=== PATIENT | male | born 1965 | race African-American/Black ===

== ENCOUNTER 2018-07-12 15:29 | Inpatient (IN) | payer MEDICAID, OTHER ==
[2018-07-12 16:55] LABS: ALB/GLOB RATIO 1.3 (1.0-1.8); ALBUMIN 4.1 gm/dL (4.2-5.5); ALKALINE PHOSPHATASE 88 U/L (34-104); ANION GAP 12.2 (7.0-16.0); BUN - UREA NITROGEN 10 mg/dL (7-25); CALCIUM SERUM 9.9 mg/dL (8.6-10.3); CARBON DIOXIDE 24.3 mEq/L (21.0-31.0); CHLORIDE 107 mEq/L (98-107); CREATININE - SERUM 0.9 mg/dL (0.7-1.3); GFR AFRICAN-AMERICAN > 60.0 ml/min (>90); GFR NON AFRICAN-AMERICAN > 60.0 ml/min; GLUCOSE 105 mg/dL (70-105); MAGNESIUM 2.3 mg/dL (1.9-2.7); PHOSPHOROUS 2.4 mg/dL (2.5-5.0); POTASSIUM SERUM 3.5 mEq/L (3.5-5.1); SGOT 24 U/L (13-39); SGPT/ALT 12 U/L (7-52); SODIUM SERUM 140 mEq/L (136-145); TOTAL PROTEIN,SERUM 7.2 gm/dL (6.0-8.3)
[2018-07-12 17:04] LABS: % LYMPHOCYTES 15.4 % (20.0-50.0); HEMATOCRIT 41.9 % (41.0-60); HEMOGLOBIN 13.8 gm/dL (12-16); MEAN CELL VOLUME 87.9 fl (80-99); MEAN CORPUSCULAR HEMOGLOBIN 28.9 pg (26.0-30.0); MEAN CORPUSCULAR HGB CONC 32.9 pg (28.0-36.0); MEAN PLATELET VOLUME 8.8 fl; PLATELET COUNT 245 Th/cmm (150-400); RED BLOOD COUNT 4.77 Mil/cmm (4.30-5.70); RED CELL DISTRIBUTION WIDTH 14.4 % (11.5-20.0); WHITE BLOOD COUNT 10.7 Th/cmm (4.8-10.8)
[2018-07-12 17:05] LABS: % EOSINOPHILS 16.8 % (0.0-5.0); % MONOCYTES 4.8 % (2.0-10.0); EOSINOPHILE ABSOLUTE 1.8 Th/cmm (0.1-0.4); LYMPHOCYTE ABSOLUTE 1.6 Th/cmm (1.5-3.0); MONOCYTE ABSOLUTE 0.5 Th/cmm (0.3-1.0); NEUTROPHILE ABSOLUTE 6.8 Th/cmm (1.8-8.0)
[2018-07-12 17:06] LABS: LYMPHOCYTE 0 % (20-50)
[2018-07-12] MEDS ORDERED: Lactated Ringer 1,000 ML IV ONE (18:41)
--- NOTE | 2018-07-12 21:22 | ED Physician Chart ---
ED Chief Complaint/HPI - Patient Information Date Seen:: 07/12/18 Time Seen:: 15:45 Chief Complaint:: dehydration, failure to thrive, blunted affect History of Present Illness:: dehydration, failure to thrive, blunted affect in a patient with a previous CVA. patient was sitting at [employer] after being abandoned by his friend. People called 911 because he looked odd. Allergies:: Allergies Allergy/AdvReac Type Severity Reaction Status Date / Time No Known Allergies Allergy Verified 07/12/18 15:41 Vitals:: Vital Signs - 8 hr 07/12/18 15:41 Temp 98.6 F HR 94 RR 15 BP 135/85 O2 Sat % 99 Historian:: EMS ED Review of Systems - Review of Systems General/Constitutional: No fever, No chills, No weight loss, No weakness, No diaphoresis, No edema, No loss of appetite Skin: No skin lesions, No rash, No bruising Head: No headache, No light-headedness Eyes: No loss of vision, No pain, No diplopia ENT: No earache, No nasal drainage, No sore throat, No tinnitus Neck: No neck pain, No swelling, No thyromegaly, No stiffness, No mass noted Cardio Vascular: No chest pain, No palpitations, No PND, No orthopnea, No edema Pulmonary: No SOB, No cough, No sputum, No wheezing GI: No nausea, No vomiting, No diarrhea, No pain, No melena, No hematochezia, No constipation, No hematemesis, Other (decreased oral intake; failure to thrive ) G/U: No dysuria, No frequency, No hematuria Musculoskeletal: No bone or joint pain, No back pain, No muscle pain Endocrine: No polyuria, No polydipsia Psychiatric: No prior psych history, No depression, No anxiety, No suicidal ideation Hematopoietic: No bruising, No lymphadenopathy Allergic/Immuno: No urticaria, No angioedema Neurological: No focal symptoms, Weakness, Other (old weakness on the left from prior CVA) ED Past Medical History - Past Medical History Obtainable: No Past Medical History: CVA/TIA Family Medical History - Family Member Mother History Unknown: Yes ED Physical Exam - Physical Examination Other Gen/Cons comments:: patient appears chronically ill appearing and much older than his age. Head: Atraumatic Other Skin comments:: what almost looks like a uremic hill is present on his face and UE. poor skin turgor. Neck: Nontender, Full ROM w/o pain, No JVD, No nuchal rigidity, No bruit, No mass, No stridor Respiratory: Nl effort/Exclusion, Clear to Auscultation, No Wheeze/Rhonchi/Rales Cardio Vascular: RRR, No murmur, gallop, rubs, NL S1 S2 GI: No tenderness/rebounding/guarding, No organomegaly, No hernia, Normal BS's, Nondistended, No mass/bruits, No McBurney tenderness Other Extremities comments:: RUE with hyperkeratotic lesions that take up the entire RUE. LUE contracted and with no movement. can move the LLE from the hip only. Other Neuro/Psych comments:: blunted affect. 99% nonverbal. Misc: Normal back, No paraspinal tenderness ED Labs/Radiology/EKG Results - Lab Results Results: Laboratory Tests 07/12/18 07/12/18 16:26 16:26 WBC 10.7 RBC 4.77 Hgb 13.8 Hct 41.9 MCV 87.9 MCH 28.9 MCHC Differential 32.9 RDW 14.4 Plt Count 245 MPV 8.8 Neutrophils % 63.0 Lymphocytes % 15.4 L Monocytes % 4.8 Eosinophils % 16.8 H Basophils % 0.0 Neutrophils (Manual) Not Reportable Lymphocytes 0 L Sodium 140 Potassium 3.5 Chloride 107 Carbon Dioxide 24.3 Anion Gap 12.2 BUN 10 Creatinine 0.9 Est GFR ( Amer) > 60.0 Est GFR (Non-Af Amer) > 60.0 BUN/Creatinine Ratio 11.1 Glucose 105 Calcium 9.9 Phosphorus 2.4 L Magnesium 2.3 Total Bilirubin 1.0 AST 24 ALT 12 Alkaline Phosphatase 88 Total Protein 7.2 Albumin 4.1 L Globulin 3.1 Albumin/Globulin Ratio 1.3 ED Assessment - Assessment General Assessment: resting comfortably. refuses an IV. refuses a cath for a urine. refuses to eat. spoke to Dr. Guzman about admitting this patient for oral and IV hydration. Assessment/Comments:: multiple phone calls made to police department and to [employer] to try to find the friend who abandoned the patient. All research unsuccessful. ED Septic Shock - . Is Septic Shock (SBP<90, OR Lactate>4 mmol\L) present?: No - <6hrs of presentation: Vital Signs: Vital Signs - 8 hr 07/12/18 15:41 Temp 98.6 F HR 94 RR 15 BP 135/85 O2 Sat % 99 ED Reassessment (Disposition) - Reassessment Reassessment Condition:: Unchanged - Diagnosis Diagnosis:: Dehydration Failure to Thrive Blunted affect. Hemiparesis - Patient Disposition Discharge/Transfer:: Acute Care w/in this hosp Admitted to:: Med/Surg Condition at Disposition:: Stable, Unchanged
[2018-07-12] MEDS: D5-0.45NS 1,000 ML IV SCH (23:21)
[2018-07-13 02:12] VITALS: BP 160/90
--- NOTE | 2018-07-13 10:28 | History & Physical ---
ADMIT DATE: 07/13/2018 CHIEF COMPLAINT: Altered level of consciousness, failure to thrive, dehydration and weakness. HISTORY OF PRESENT ILLNESS: This is a 52-year-old male who was brought into the [facility] from a nearby fast food restaurant, bystander called 911 because the patient appears to be odd. REVIEW OF SYSTEMS: GENERAL: This is a 52-year-old male that appears as stated. No fever. No chills. Positive weakness. HEAD: No headache. No dizziness. EYES: No eye pain. No blurring of vision. NECK: No neck pain. No nuchal rigidity. CHEST: No chest pain. No palpitation. PULMONARY: No coughing. No shortness of breath. GASTROINTESTINAL: No abdominal pain, no constipation, no diarrhea. MUSCULOSKELETAL: No joint pain. No muscle pain. SOCIAL HISTORY: The patient is currently homeless. PAST SURGICAL HISTORY: Unremarkable. FAMILY HISTORY: Unremarkable. PAST MEDICAL HISTORY: Includes history of CVA. PHYSICAL EXAMINATION: VITAL SIGNS: Temperature 98.1, heart rate 71, blood pressure 153/81, respirations of 18, and 96% on room air. HEENT: Head is atraumatic, normocephalic. Eyes: Bilateral conjunctivae are clear. Bilateral pupils are equally round and reactive. NECK: Supple. No JVD. CARDIOVASCULAR: S1 and S2, without murmur. PULMONARY: Clear to auscultation. GASTROINTESTINAL: Soft and nontender without guarding. Positive bowel sounds. MUSCULOSKELETAL: No clubbing. No cyanosis noted. ASSESSMENT: 1. Dehydration. 2. Failure to thrive. 3. History of cerebrovascular accident. PLAN: We will admit the patient to Med/Surg Unit. We will give the patient IV fluids. We will start the patient with losartan 25 mg once a day for blood pressure maintenance and also given clonidine as needed. Treatment plans were discussed with the patient's nurse. Treatment plans were discussed with Dr. Guzman. JOB# [id number]
[2018-07-13] MEDS: D5-0.45NS 1,000 ML IV SCH (13:21)
--- NOTE | 2018-07-13 18:02 | Consultation ---
DATE OF CONSULTATION: 07/13/2018 REASON FOR CONSULTATION: Failure to thrive. HISTORY OF PRESENT ILLNESS: This consult was obtained through the courtesy of Dr. Guzman for this 52-year-old with history of CVA, seems to have been complicated by respiratory failure and required tracheostomy, who is homeless, who presented to the hospital, brought in for being altered or not behaving appropriately. The patient is itching. He has some skin lesions. He was dehydrated. He was very weak. The patient denies any abdominal pain, nausea, vomiting, diarrhea and constipation, overt GI bleed. PAST MEDICAL HISTORY: CVA, skin lesions. PAST SURGICAL HISTORY: Negative. SOCIAL HISTORY: Denies smoking, alcohol, drugs. I am not quite sure how reliable he is. FAMILY HISTORY: Negative or noncontributory. ALLERGIES: Denies any known drug allergies. MEDICATIONS: Not taking any medicines at home, but he is requesting some shots and some cream for skin lesions, so he might have been on some treatment before. REVIEW OF SYSTEMS: He says he has lost weight. Denies any abdominal pain or GI bleed. PHYSICAL EXAMINATION: GENERAL: The patient is awake, oriented to self and place, in mild distress. VITAL SIGNS: Blood pressure is 153/81, heart rate 71, respiratory rate 18, and temperature is 98.1. HEAD AND NECK: Pupils reactive to light and accommodation. Extraocular muscles could not be tested. Oral cavity, no lesion. NECK: Supple. CHEST: Good air entry. LUNGS: Clear to auscultation. CARDIOVASCULAR: Regular rate and rhythm. No murmur or gallop. ABDOMEN: Soft, positive bowel sounds. EXTREMITIES: Lower extremities, no edema. CENTRAL NERVOUS SYSTEM: The patient is weak on the right side, flaccid. LABORATORY DATA: CBC was unremarkable. Chemistry showed phosphorus of 2.4. Normal liver function tests. Albumin is 4.1. IMPRESSION: A 52-year-old with dehydration, weakness, fatigue, not eating as failure to thrive. ASSESSMENT AND PLAN: 1. Failure to thrive. It seems the patient is able to eat, but he does not have enough food, so at this time, we will start him with pureed diet. We will see how he is doing. If he continues to eat, we will give him more food. If he has problem with his appetite, we can give him a Remeron 15 mg at bedtime. We will monitor his labs and see how he is doing. 2. Itching or skin lesion. The patient will need medication for that and this will be per PCP. 3. History of old strokes seems stable at this time. 4. Also, history of previous tracheostomy as obvious by the scar on his neck. At this time, the patient is breathing okay, so no need for further management. Thank you Dr. Guzman for allowing me to participate in the care of this patient. If you have any further questions, please let me know. JOB# [id number]
[2018-07-14] MEDS: D5-0.45NS 1,000 ML IV SCH ×2 (02:21→15:22)
--- NOTE | 2018-07-14 09:34 | General Progress Note ---
Subjective - Review of Systems Events since last encounter: patient admitted with failute to thrive confused and weak Objective - Results Result Diagrams: 07/12/18 16:26 07/12/18 16:26 Recent Labs: Laboratory Last Values WBC 10.7 Th/cmm (4.8-10.8) 07/12/18 16:26 RBC 4.77 Mil/cmm (4.30-5.70) 07/12/18 16:26 Hgb 13.8 gm/dL (12-16) 07/12/18 16:26 Hct 41.9 % (41.0-60) 07/12/18 16:26 MCV 87.9 fl (80-99) 07/12/18 16:26 MCH 28.9 pg (26.0-30.0) 07/12/18 16:26 MCHC Differential 32.9 pg (28.0-36.0) 07/12/18 16:26 RDW 14.4 % (11.5-20.0) 07/12/18 16:26 Plt Count 245 Th/cmm (150-400) 07/12/18 16:26 MPV 8.8 fl 07/12/18 16:26 Neutrophils % 63.0 % (40.0-80.0) 07/12/18 16:26 Lymphocytes % 15.4 % (20.0-50.0) L 07/12/18 16:26 Monocytes % 4.8 % (2.0-10.0) 07/12/18 16:26 Eosinophils % 16.8 % (0.0-5.0) H 07/12/18 16:26 Basophils % 0.0 % (0.0-2.0) 07/12/18 16:26 Neutrophils (Manual) Not Reportable 07/12/18 16:26 Lymphocytes 0 % (20-50) L 07/12/18 16:26 Sodium 140 mEq/L (136-145) 07/12/18 16:26 Potassium 3.5 mEq/L (3.5-5.1) 07/12/18 16:26 Chloride 107 mEq/L (98-107) 07/12/18 16:26 Carbon Dioxide 24.3 mEq/L (21.0-31.0) 07/12/18 16:26 Anion Gap 12.2 (7.0-16.0) 07/12/18 16:26 BUN 10 mg/dL (7-25) 07/12/18 16:26 Creatinine 0.9 mg/dL (0.7-1.3) 07/12/18 16:26 Est GFR ( Amer) > 60.0 ml/min (>90) 07/12/18 16:26 Est GFR (Non-Af Amer) > 60.0 ml/min 07/12/18 16:26 BUN/Creatinine Ratio 11.1 07/12/18 16:26 Glucose 105 mg/dL (70-105) 07/12/18 16:26 Calcium 9.9 mg/dL (8.6-10.3) 07/12/18 16:26 Phosphorus 2.4 mg/dL (2.5-5.0) L 07/12/18 16:26 Magnesium 2.3 mg/dL (1.9-2.7) 07/12/18 16:26 Total Bilirubin 1.0 mg/dL (0.3-1.0) 07/12/18 16:26 AST 24 U/L (13-39) 07/12/18 16:26 ALT 12 U/L (7-52) 07/12/18 16:26 Alkaline Phosphatase 88 U/L (34-104) 07/12/18 16:26 Total Protein 7.2 gm/dL (6.0-8.3) 07/12/18 16:26 Albumin 4.1 gm/dL (4.2-5.5) L 07/12/18 16:26 Globulin 3.1 gm/dL 07/12/18 16:26 Albumin/Globulin Ratio 1.3 (1.0-1.8) 07/12/18 16:26 - Physical Exam Vitals and I&O: Vital Signs Temp 98.1 F 07/13/18 07:56 Pulse 71 07/13/18 07:56 Resp 18 07/13/18 08:00 BP 153/81 07/13/18 07:56 Pulse Ox 96 07/13/18 07:56 Intake & Output 07/13/18 07/14/18 07/14/18 18:59 06:59 18:59 Intake Total 900 120 Balance 900 120 Weight (lbs) 64.41 kg 65.181 kg Intake: Oral 900 120 Other: # Voids 4 # Bowel Movements 1 Stool Characteristics Soft Formed Weight Source Bedscale Bedscale Active Medications: Current Medications Dextrose/Sodium Chloride (D5-0.45ns) 1,000 mls @ 75 mls/hr IV .[id number] FER Stop: 09/10/18 23:53 Losartan Potassium (Cozaar) 25 mg PO DAILY FER Stop: 09/11/18 09:59 Last Admin: 07/14/18 09:15 Dose: Not Given General: No acute distress HEENT: Atraumatic Neck: Supple, JVD Cardiovascular: Regular rate, Normal S1, Normal S2 Lungs: Clear to auscultation Abdomen: Bowel sounds Assessment/Plan - Problem List Patient Problems: All Active Problems Dehydration (Acute) E86.0 Failure to thrive (Acute) [id number] H/O: CVA (cerebrovascular accident) (Acute) Z86.73 - Plan Plan: as per order sheet Nutritional Asmnt/Malnutr-PDOC - Dietary Evaluation Malnutrition Findings (Please click <Entered> for more info): Nutritional Asmnt/Malnutrition Start: 07/13/18 12: 45 Text: Status: Complete Freq: Protocol: Document 07/13/18 12:46 FRANK (Rec: 07/13/18 12:53 FRANK EDISON- [email or web address]) Nutritional Asmnt/Malnutrition Patient General Information Diagnosis F T T, dehydration Pertinent Medical Hx/Surgical Hx CVA/TIA Subjective Information Pt sitting up in bed, shook head "no" when asked if he had an appetite, then shrugged his sholders when asked why did he not have an appetite. Current Diet Order/ Nutrition Support pureed Pertinent Medications D5 1/2NS @75ml/hr (1.8L/day, 306kcals/day) Pertinent Labs 07/12: Na 140, K 3.5, Cl 107, CO2 24.3, BUN 10, Ca 0.9, Ca 9 .9, glucose 105, Phos 2.4, Mg 2.3 Nutritional Hx/Data Height 1.88 m Height (Calculated Centimeters) 188.0 Current Weight (lbs) 63.503 kg Weight (Calculated Kilograms) 63.5 Weight (Calculated Grams) 20539.9 Body Mass Index (BMI) 17.9 Weight Status Underweight GI Symptoms GI Symptoms None Last BM 07/13 Cultural/Ethnic/Yarsani Belief unknown Usual diet at home pureed Skin Integrity/Comment: anayeli score 17, intact Current %PO Negligible < 25% Estimated Nutritional Goals BEE in Kcals: Using Current wt Calories/Kcals/Kg 30+kcals/kg Kcals Calculated 1920+kcals/day Protein: Using Current wt Protein g/k.2+g/kg Protein Calculated 77+g/day Fluid: ml ~1920ml/day (~1ml/kcal) Nutritional Problem 1. Problem Problem Poor PO intake related to Etiology decreased appetite Signs/Symptoms: as evidenced by PO 0%. Intervention/Recommendation Comments Recommend continuing regular diet with texture per MANAGER OF GLOBAL. Consider appeitite stimulant to help with PO intake Recommend Boost Plus BID to help meet estimated needs. Expected Outcomes/Goals Expected Outcomes/Goals PO intake >75% of meals
--- NOTE | 2018-07-14 10:18 | GI Progress Note ---
Subjective - Review of Systems Service Date: 07/14/18 Events since last encounter: No events Subjective: No active complaint Eating good Objective - Results Result Diagrams: 07/12/18 16:26 07/12/18 16:26 Recent Labs: Laboratory Last Values WBC 10.7 Th/cmm (4.8-10.8) 07/12/18 16:26 RBC 4.77 Mil/cmm (4.30-5.70) 07/12/18 16:26 Hgb 13.8 gm/dL (12-16) 07/12/18 16:26 Hct 41.9 % (41.0-60) 07/12/18 16:26 MCV 87.9 fl (80-99) 07/12/18 16:26 MCH 28.9 pg (26.0-30.0) 07/12/18 16:26 MCHC Differential 32.9 pg (28.0-36.0) 07/12/18 16:26 RDW 14.4 % (11.5-20.0) 07/12/18 16:26 Plt Count 245 Th/cmm (150-400) 07/12/18 16:26 MPV 8.8 fl 07/12/18 16:26 Neutrophils % 63.0 % (40.0-80.0) 07/12/18 16:26 Lymphocytes % 15.4 % (20.0-50.0) L 07/12/18 16:26 Monocytes % 4.8 % (2.0-10.0) 07/12/18 16:26 Eosinophils % 16.8 % (0.0-5.0) H 07/12/18 16:26 Basophils % 0.0 % (0.0-2.0) 07/12/18 16:26 Neutrophils (Manual) Not Reportable 07/12/18 16:26 Lymphocytes 0 % (20-50) L 07/12/18 16:26 Sodium 140 mEq/L (136-145) 07/12/18 16:26 Potassium 3.5 mEq/L (3.5-5.1) 07/12/18 16:26 Chloride 107 mEq/L (98-107) 07/12/18 16:26 Carbon Dioxide 24.3 mEq/L (21.0-31.0) 07/12/18 16:26 Anion Gap 12.2 (7.0-16.0) 07/12/18 16:26 BUN 10 mg/dL (7-25) 07/12/18 16:26 Creatinine 0.9 mg/dL (0.7-1.3) 07/12/18 16:26 Est GFR ( Amer) > 60.0 ml/min (>90) 07/12/18 16:26 Est GFR (Non-Af Amer) > 60.0 ml/min 07/12/18 16:26 BUN/Creatinine Ratio 11.1 07/12/18 16:26 Glucose 105 mg/dL (70-105) 07/12/18 16:26 Calcium 9.9 mg/dL (8.6-10.3) 07/12/18 16:26 Phosphorus 2.4 mg/dL (2.5-5.0) L 07/12/18 16:26 Magnesium 2.3 mg/dL (1.9-2.7) 07/12/18 16:26 Total Bilirubin 1.0 mg/dL (0.3-1.0) 07/12/18 16:26 AST 24 U/L (13-39) 07/12/18 16:26 ALT 12 U/L (7-52) 07/12/18 16:26 Alkaline Phosphatase 88 U/L (34-104) 07/12/18 16:26 Total Protein 7.2 gm/dL (6.0-8.3) 07/12/18 16:26 Albumin 4.1 gm/dL (4.2-5.5) L 07/12/18 16:26 Globulin 3.1 gm/dL 07/12/18 16:26 Albumin/Globulin Ratio 1.3 (1.0-1.8) 07/12/18 16:26 - Physical Exam Vitals and I&O: Vital Signs Temp 98.1 F 07/13/18 07:56 Pulse 71 07/13/18 07:56 Resp 18 07/13/18 08:00 BP 153/81 07/13/18 07:56 Pulse Ox 96 07/13/18 07:56 Intake & Output 07/13/18 07/14/18 07/14/18 18:59 06:59 18:59 Intake Total 900 120 Balance 900 120 Weight (lbs) 64.41 kg 65.181 kg Intake: Oral 900 120 Other: # Voids 4 # Bowel Movements 1 Stool Characteristics Soft Formed Weight Source Bedscale Bedscale Active Medications: Current Medications Dextrose/Sodium Chloride (D5-0.45ns) 1,000 mls @ 75 mls/hr IV .[id number] [facility] Stop: 09/10/18 23:53 Losartan Potassium (Cozaar) 25 mg PO DAILY [facility] Stop: 09/11/18 09:59 Last Admin: 07/14/18 09:15 Dose: Not Given General: Alert, No acute distress Cardiovascular: Regular rate, Normal S1, Normal S2 Lungs: Clear to auscultation Abdomen: Bowel sounds, Soft Assessment/Plan - Problem List Patient Problems: All Active Problems Dehydration (Acute) E86.0 Failure to thrive (Acute) [id number] H/O: CVA (cerebrovascular accident) (Acute) Z86.73 - Plan Plan: 1. Dehydration. Better. Continue IVF and feeding 2. Failure to thrive. Most likely due to lack of food Cont feeding
[2018-07-15] MEDS: D5-0.45NS 1,000 ML IV SCH (05:22)
--- NOTE | 2018-07-15 10:26 | General Progress Note ---
Subjective - Review of Systems Events since last encounter: patient awake alert doing well Objective - Results Result Diagrams: 07/12/18 16:26 07/12/18 16:26 Recent Labs: Laboratory Last Values WBC 10.7 Th/cmm (4.8-10.8) 07/12/18 16:26 RBC 4.77 Mil/cmm (4.30-5.70) 07/12/18 16:26 Hgb 13.8 gm/dL (12-16) 07/12/18 16:26 Hct 41.9 % (41.0-60) 07/12/18 16:26 MCV 87.9 fl (80-99) 07/12/18 16:26 MCH 28.9 pg (26.0-30.0) 07/12/18 16:26 MCHC Differential 32.9 pg (28.0-36.0) 07/12/18 16:26 RDW 14.4 % (11.5-20.0) 07/12/18 16:26 Plt Count 245 Th/cmm (150-400) 07/12/18 16:26 MPV 8.8 fl 07/12/18 16:26 Neutrophils % 63.0 % (40.0-80.0) 07/12/18 16:26 Lymphocytes % 15.4 % (20.0-50.0) L 07/12/18 16:26 Monocytes % 4.8 % (2.0-10.0) 07/12/18 16:26 Eosinophils % 16.8 % (0.0-5.0) H 07/12/18 16:26 Basophils % 0.0 % (0.0-2.0) 07/12/18 16:26 Neutrophils (Manual) Not Reportable 07/12/18 16:26 Lymphocytes 0 % (20-50) L 07/12/18 16:26 Sodium 140 mEq/L (136-145) 07/12/18 16:26 Potassium 3.5 mEq/L (3.5-5.1) 07/12/18 16:26 Chloride 107 mEq/L (98-107) 07/12/18 16:26 Carbon Dioxide 24.3 mEq/L (21.0-31.0) 07/12/18 16:26 Anion Gap 12.2 (7.0-16.0) 07/12/18 16:26 BUN 10 mg/dL (7-25) 07/12/18 16:26 Creatinine 0.9 mg/dL (0.7-1.3) 07/12/18 16:26 Est GFR ( Amer) > 60.0 ml/min (>90) 07/12/18 16:26 Est GFR (Non-Af Amer) > 60.0 ml/min 07/12/18 16:26 BUN/Creatinine Ratio 11.1 07/12/18 16:26 Glucose 105 mg/dL (70-105) 07/12/18 16:26 Calcium 9.9 mg/dL (8.6-10.3) 07/12/18 16:26 Phosphorus 2.4 mg/dL (2.5-5.0) L 07/12/18 16:26 Magnesium 2.3 mg/dL (1.9-2.7) 07/12/18 16:26 Total Bilirubin 1.0 mg/dL (0.3-1.0) 07/12/18 16:26 AST 24 U/L (13-39) 07/12/18 16:26 ALT 12 U/L (7-52) 07/12/18 16:26 Alkaline Phosphatase 88 U/L (34-104) 07/12/18 16:26 Total Protein 7.2 gm/dL (6.0-8.3) 07/12/18 16:26 Albumin 4.1 gm/dL (4.2-5.5) L 07/12/18 16:26 Globulin 3.1 gm/dL 07/12/18 16:26 Albumin/Globulin Ratio 1.3 (1.0-1.8) 07/12/18 16:26 - Physical Exam Vitals and I&O: Vital Signs Temp 98.1 F 07/13/18 07:56 Pulse 71 07/13/18 07:56 Resp 16 07/14/18 20:00 BP 153/81 07/13/18 07:56 Pulse Ox 96 07/13/18 07:56 Intake & Output 07/14/18 07/15/18 07/15/18 18:59 06:59 18:59 Intake Total 750 1440 Output Total 1 Balance 750 1439 Weight (lbs) 64.864 kg 64.864 kg Intake: Oral 750 1440 Output: Stool 1 Other: # Voids 4 4 # Bowel Movements 1 Stool Characteristics Soft Formed Weight Source Bedscale Bedscale Active Medications: Current Medications Hydrocortisone (Hydrocortisone 1%) 1 appl TP BID FER Stop: 09/12/18 19:29 Last Admin: 07/15/18 09:12 Dose: 1 appl Dextrose/Sodium Chloride (D5-0.45ns) 1,000 mls @ 75 mls/hr IV .[id number] [facility]ER Stop: 09/10/18 23:53 Last Admin: 07/15/18 05:22 Dose: Not Given Losartan Potassium (Cozaar) 25 mg PO DAILY [facility]ER Stop: 09/11/18 09:59 Last Admin: 07/15/18 09:15 Dose: Not Given General: Alert, No acute distress HEENT: Atraumatic Neck: Supple, JVD Cardiovascular: Regular rate, Normal S1, Normal S2 Lungs: Clear to auscultation Abdomen: Bowel sounds, Soft Assessment/Plan - Problem List Patient Problems: All Active Problems Dehydration (Acute) E86.0 Failure to thrive (Acute) [id number] H/O: CVA (cerebrovascular accident) (Acute) Z86.73 - Plan Plan: as per order sheet Nutritional Asmnt/Malnutr-PDOC - Dietary Evaluation Malnutrition Findings (Please click <Entered> for more info): Nutritional Asmnt/Malnutrition Start: 07/13/18 12: 45 Text: Status: Complete Freq: Protocol: Document 07/13/18 12:46 FRANK (Rec: 07/13/18 12:53 FRANK HOGAN- [email or web address]) Nutritional Asmnt/Malnutrition Patient General Information Diagnosis F T T, dehydration Pertinent Medical Hx/Surgical Hx CVA/TIA Subjective Information Pt sitting up in bed, shook head "no" when asked if he had an appetite, then shrugged his sholders when asked why did he not have an appetite. Current Diet Order/ Nutrition Support pureed Pertinent Medications D5 1/2NS @75ml/hr (1.8L/day, 306kcals/day) Pertinent Labs 07/12: Na 140, K 3.5, Cl 107, CO2 24.3, BUN 10, Ca 0.9, Ca 9 .9, glucose 105, Phos 2.4, Mg 2.3 Nutritional Hx/Data Height 1.88 m Height (Calculated Centimeters) 188.0 Current Weight (lbs) 63.503 kg Weight (Calculated Kilograms) 63.5 Weight (Calculated Grams) 05254.9 Body Mass Index (BMI) 17.9 Weight Status Underweight GI Symptoms GI Symptoms None Last BM 07/13 Cultural/Ethnic/Restorationism Belief unknown Usual diet at home pureed Skin Integrity/Comment: anayeli score 17, intact Current %PO Negligible < 25% Estimated Nutritional Goals BEE in Kcals: Using Current wt Calories/Kcals/Kg 30+kcals/kg Kcals Calculated 1920+kcals/day Protein: Using Current wt Protein g/k.2+g/kg Protein Calculated 77+g/day Fluid: ml ~1920ml/day (~1ml/kcal) Nutritional Problem 1. Problem Problem Poor PO intake related to Etiology decreased appetite Signs/Symptoms: as evidenced by PO 0%. Intervention/Recommendation Comments Recommend continuing regular diet with texture per SEWING DEPARTMENT SUPERVISOR. Consider appeitite stimulant to help with PO intake Recommend Boost Plus BID to help meet estimated needs. Expected Outcomes/Goals Expected Outcomes/Goals PO intake >75% of meals
--- NOTE | 2018-07-15 18:31 | Consultation ---
DATE OF CONSULTATION: 07/15/2018 HISTORY OF PRESENT ILLNESS: A 52-year-old male found at [facility], apparently abandoned by a friend. People called 911 because he looked odd, blunted affect, not saying anything to me on initial exam. Staff noting he has a previous CVA, told people at [facility], he had a stroke, so there was some urgency to get into the hospital. The patient is flat on exam. Not answering any questions whatsoever. Not answering questions and we will provide for basic food, clothing, and detention. The patient resistant to care. Per staff, no behaviors, no agitation, has been eating on his own volition, going to the bathroom. PAST PSYCHIATRIC HISTORY: Unclear. PAST MEDICAL HISTORY: Failure to thrive, history of stroke. FAMILY HISTORY: Noncontributory. SOCIAL HISTORY: Apparently homeless, unclear social support, unclear drugs. MENTAL STATUS EXAMINATION: -[place] male, awake, alert, not answering any questions, staring blankly, mood unclear. Affect flat. Thought processes were difficult to assess. Thought content, difficult to assess. Insight and judgment seemingly diminished. PROVISIONAL DIAGNOSES: Mood, unspecified; anxiety, unspecified; and psychosis, unspecified. MEDICAL: Please see full H and P. RECOMMENDATIONS AND PLAN: The patient will likely need a [id number] hold for grave disability given his current condition. We will continue to monitor. JOB# [id number]
--- NOTE | 2018-07-15 22:07 | GI Progress Note ---
Subjective - Review of Systems Service Date: 07/15/18 Events since last encounter: Pt refusig most meds and treatment plan but eating well Objective - Results Result Diagrams: 07/12/18 16:26 07/12/18 16:26 Recent Labs: Laboratory Last Values WBC 10.7 Th/cmm (4.8-10.8) 07/12/18 16:26 RBC 4.77 Mil/cmm (4.30-5.70) 07/12/18 16:26 Hgb 13.8 gm/dL (12-16) 07/12/18 16:26 Hct 41.9 % (41.0-60) 07/12/18 16:26 MCV 87.9 fl (80-99) 07/12/18 16:26 MCH 28.9 pg (26.0-30.0) 07/12/18 16:26 MCHC Differential 32.9 pg (28.0-36.0) 07/12/18 16:26 RDW 14.4 % (11.5-20.0) 07/12/18 16:26 Plt Count 245 Th/cmm (150-400) 07/12/18 16:26 MPV 8.8 fl 07/12/18 16:26 Neutrophils % 63.0 % (40.0-80.0) 07/12/18 16:26 Lymphocytes % 15.4 % (20.0-50.0) L 07/12/18 16:26 Monocytes % 4.8 % (2.0-10.0) 07/12/18 16:26 Eosinophils % 16.8 % (0.0-5.0) H 07/12/18 16:26 Basophils % 0.0 % (0.0-2.0) 07/12/18 16:26 Neutrophils (Manual) Not Reportable 07/12/18 16:26 Lymphocytes 0 % (20-50) L 07/12/18 16:26 Sodium 140 mEq/L (136-145) 07/12/18 16:26 Potassium 3.5 mEq/L (3.5-5.1) 07/12/18 16:26 Chloride 107 mEq/L (98-107) 07/12/18 16:26 Carbon Dioxide 24.3 mEq/L (21.0-31.0) 07/12/18 16:26 Anion Gap 12.2 (7.0-16.0) 07/12/18 16:26 BUN 10 mg/dL (7-25) 07/12/18 16:26 Creatinine 0.9 mg/dL (0.7-1.3) 07/12/18 16:26 Est GFR ( Amer) > 60.0 ml/min (>90) 07/12/18 16:26 Est GFR (Non-Af Amer) > 60.0 ml/min 07/12/18 16:26 BUN/Creatinine Ratio 11.1 07/12/18 16:26 Glucose 105 mg/dL (70-105) 07/12/18 16:26 Calcium 9.9 mg/dL (8.6-10.3) 07/12/18 16:26 Phosphorus 2.4 mg/dL (2.5-5.0) L 07/12/18 16:26 Magnesium 2.3 mg/dL (1.9-2.7) 07/12/18 16:26 Total Bilirubin 1.0 mg/dL (0.3-1.0) 07/12/18 16:26 AST 24 U/L (13-39) 07/12/18 16:26 ALT 12 U/L (7-52) 07/12/18 16:26 Alkaline Phosphatase 88 U/L (34-104) 07/12/18 16:26 Total Protein 7.2 gm/dL (6.0-8.3) 07/12/18 16:26 Albumin 4.1 gm/dL (4.2-5.5) L 07/12/18 16:26 Globulin 3.1 gm/dL 07/12/18 16:26 Albumin/Globulin Ratio 1.3 (1.0-1.8) 07/12/18 16:26 - Physical Exam Vitals and I&O: Vital Signs Temp 98.1 F 07/13/18 07:56 Pulse 71 07/13/18 07:56 Resp 18 07/15/18 20:00 BP 153/81 07/13/18 07:56 Pulse Ox 96 07/13/18 07:56 Intake & Output 07/15/18 07/15/18 07/16/18 06:59 18:59 06:59 Intake Total 1440 950 Output Total 1 Balance 1439 950 Weight (lbs) 64.864 kg 64.864 kg Intake: Oral 1440 950 Output: Stool 1 Other: # Voids 4 3 # Bowel Movements 1 1 Stool Characteristics Soft Soft Soft Formed Formed Formed Weight Source Bedscale Bedscale Active Medications: Current Medications Hydrocortisone (Hydrocortisone 1%) 1 appl TP BID [facility] Stop: 09/12/18 19:29 Last Admin: 07/15/18 16:40 Dose: Not Given Dextrose/Sodium Chloride (D5-0.45ns) 1,000 mls @ 75 mls/hr IV .[id number] [facility] Stop: 09/10/18 23:53 Last Admin: 07/15/18 05:22 Dose: Not Given Losartan Potassium (Cozaar) 25 mg PO DAILY [facility] Stop: 09/11/18 09:59 Last Admin: 07/15/18 09:15 Dose: Not Given General: Alert, No acute distress HEENT: Atraumatic Neck: Supple, JVD Cardiovascular: Regular rate, Normal S1, Normal S2 Lungs: Clear to auscultation Abdomen: Bowel sounds, Soft Assessment/Plan - Problem List Patient Problems: All Active Problems Dehydration (Acute) E86.0 Failure to thrive (Acute) [id number] H/O: CVA (cerebrovascular accident) (Acute) Z86.73 - Assessment Assessment: Plan: 1. Dehydration. Better. Continue IVF and feeding 2. Failure to thrive. Most likely due to lack of food Cont feeding
--- NOTE | 2018-07-16 16:17 | Consultation ---
DATE OF CONSULTATION: 07/16/2018 HISTORY OF PRESENT ILLNESS: A 52-year-old male apparently left [facility] to wait in line by people at the [facility] and [facility], who are on their way to [facility] for an evaluation. The patient was declining, decompensating, mute, and was not talking anymore and was acting strange. Patrons at the [facility] called the police because of the patient's odd behaviors and demeanor. On [id number], the patient is not talking to me, whatsoever, but did give the social services manager an answer. Apparently, he is staying at a room and board. They did verbalize that they are concerned about him and would like him evaluated because he is not taking medications. PAST PSYCHIATRIC HISTORY: Schizophrenia. SOCIAL HISTORY: The patient coming from a [facility] and [facility]. MENTAL STATUS EXAMINATION: -[place]yrgy[place] male, awake, alert, staring blankly. Speech not answering any questions. Mood unclear. Affect flat. Thought processes were difficult to assess. Thought content, difficult to assess. PROVISIONAL DIAGNOSIS: Schizophrenia. RECOMMENDATIONS AND PLAN: Ongoing 5150 hold. We are attempting to transfer him to an inpatient psych unit. JOB# [id number]
--- NOTE | 2018-07-17 14:32 | GI Progress Note ---
Subjective - Review of Systems Subjective: NO EVENTS EATING FOOD PER STAFF NO COMPLAINTS OF ABD PAIN Objective - Results Result Diagrams: 07/12/18 16:26 07/12/18 16:26 Recent Labs: Laboratory Last Values WBC 10.7 Th/cmm (4.8-10.8) 07/12/18 16:26 RBC 4.77 Mil/cmm (4.30-5.70) 07/12/18 16:26 Hgb 13.8 gm/dL (12-16) 07/12/18 16:26 Hct 41.9 % (41.0-60) 07/12/18 16:26 MCV 87.9 fl (80-99) 07/12/18 16:26 MCH 28.9 pg (26.0-30.0) 07/12/18 16: MCHC Differential 32.9 pg (28.0-36.0) 07/12/18 16:26 RDW 14.4 % (11.5-20.0) 07/12/18 16:26 Plt Count 245 Th/cmm (150-400) 07/12/18 16:26 MPV 8.8 fl 07/12/18 16:26 Neutrophils % 63.0 % (40.0-80.0) 07/12/18 16:26 Lymphocytes % 15.4 % (20.0-50.0) L 07/12/18 16:26 Monocytes % 4.8 % (2.0-10.0) 07/12/18 16:26 Eosinophils % 16.8 % (0.0-5.0) H 07/12/18 16: Basophils % 0.0 % (0.0-2.0) 07/12/18 16:26 Neutrophils (Manual) Not Reportable 07/12/18 16:26 Lymphocytes 0 % (20-50) L 07/12/18 16:26 Sodium 140 mEq/L (136-145) 07/12/18 16:26 Potassium 3.5 mEq/L (3.5-5.1) 07/12/18 16:26 Chloride 107 mEq/L (98-107) 07/12/18 16:26 Carbon Dioxide 24.3 mEq/L (21.0-31.0) 07/12/18 16:26 Anion Gap 12.2 (7.0-16.0) 07/12/18 16:26 BUN 10 mg/dL (7-25) 07/12/18 16:26 Creatinine 0.9 mg/dL (0.7-1.3) 07/12/18 16:26 Est GFR ( Amer) > 60.0 ml/min (>90) 07/12/18 16:26 Est GFR (Non-Af Amer) > 60.0 ml/min 07/12/18 16:26 BUN/Creatinine Ratio 11.1 07/12/18 16:26 Glucose 105 mg/dL (70-105) 07/12/18 16:26 Calcium 9.9 mg/dL (8.6-10.3) 07/12/18 16:26 Phosphorus 2.4 mg/dL (2.5-5.0) L 07/12/18 16:26 Magnesium 2.3 mg/dL (1.9-2.7) 07/12/18 16:26 Total Bilirubin 1.0 mg/dL (0.3-1.0) 07/12/18 16:26 AST 24 U/L (13-39) 07/12/18 16:26 ALT 12 U/L (7-52) 07/12/18 16:26 Alkaline Phosphatase 88 U/L (34-104) 07/12/18 16:26 Total Protein 7.2 gm/dL (6.0-8.3) 07/12/18 16:26 Albumin 4.1 gm/dL (4.2-5.5) L 07/12/18 16:26 Globulin 3.1 gm/dL 07/12/18 16:26 Albumin/Globulin Ratio 1.3 (1.0-1.8) 07/12/18 16:26 - Physical Exam Vitals and I&O: Vital Signs Temp 98.8 F 07/17/18 12:00 Pulse 75 07/17/18 12:00 Resp 20 07/17/18 12:00 BP 142/85 07/17/18 12:00 Pulse Ox 100 07/17/18 12:00 Intake & Output 07/16/18 07/17/18 07/17/18 18:59 06:59 18:59 Intake Total 560 500 Balance 560 500 Weight (lbs) 64.864 kg 64.864 kg Intake: Oral 560 500 Other: # Voids 3 3 # Bowel Movements 0 0 Stool Characteristics Soft Soft Soft Formed Formed Formed Weight Source Bedscale Bedscale Active Medications: Current Medications Hydrocortisone (Hydrocortisone 1%) 1 appl TP BID [facility] Stop: 09/12/18 19:29 Last Admin: 07/17/18 08:29 Dose: Not Given Dextrose/Sodium Chloride (D5-0.45ns) 1,000 mls @ 75 mls/hr IV .[id number] [facility]ER Stop: 09/10/18 23:53 Last Admin: 07/15/18 05:22 Dose: Not Given Losartan Potassium (Cozaar) 25 mg PO DAILY [facility]ER Stop: 09/11/18 09:59 Last Admin: 07/17/18 08:30 Dose: Not Given Risperidone (Risperdal) 0.5 mg PO BID [facility]; Protocol Stop: 09/14/18 16:59 General: Alert, No acute distress HEENT: Atraumatic Neck: Supple, JVD Cardiovascular: Regular rate, Normal S1, Normal S2 Lungs: Clear to auscultation Abdomen: Bowel sounds, Soft Assessment/Plan - Problem List Patient Problems: All Active Problems Dehydration (Acute) E86.0 Failure to thrive (Acute) [id number] H/O: CVA (cerebrovascular accident) (Acute) Z86.73 - Assessment Assessment: 62 YO MALE WITH PSYCH ISSUES ON 5150 HOLD HAD FAILURE TO THRIVE BUT NOW EATING ORALLY NO GI ISSUES AT THIS TIME 1.CONT WITH SUPP CARE 2.PSYCH INPUT 3.NO NEED FOR PEG AT THIS TIME SINCE PT IS EATING 4.WILL SEE NEEDED; CALL IF QUESTIONS
--- NOTE | 2018-07-17 15:38 | General Progress Note ---
Subjective - Review of Systems Events since last encounter: denies abd pain in no distress eating well Objective - Results Result Diagrams: 07/12/18 16:26 07/12/18 16:26 Recent Labs: Laboratory Last Values WBC 10.7 Th/cmm (4.8-10.8) 07/12/18 16:26 RBC 4.77 Mil/cmm (4.30-5.70) 07/12/18 16:26 Hgb 13.8 gm/dL (12-16) 07/12/18 16:26 Hct 41.9 % (41.0-60) 07/12/18 16:26 MCV 87.9 fl (80-99) 07/12/18 16:26 MCH 28.9 pg (26.0-30.0) 07/12/18 16: MCHC Differential 32.9 pg (28.0-36.0) 07/12/18 16:26 RDW 14.4 % (11.5-20.0) 07/12/18 16:26 Plt Count 245 Th/cmm (150-400) 07/12/18 16:26 MPV 8.8 fl 07/12/18 16:26 Neutrophils % 63.0 % (40.0-80.0) 07/12/18 16:26 Lymphocytes % 15.4 % (20.0-50.0) L 07/12/18 16:26 Monocytes % 4.8 % (2.0-10.0) 07/12/18 16:26 Eosinophils % 16.8 % (0.0-5.0) H 07/12/18 16:26 Basophils % 0.0 % (0.0-2.0) 07/12/18 16:26 Neutrophils (Manual) Not Reportable 07/12/18 16:26 Lymphocytes 0 % (20-50) L 07/12/18 16:26 Sodium 140 mEq/L (136-145) 07/12/18 16:26 Potassium 3.5 mEq/L (3.5-5.1) 07/12/18 16:26 Chloride 107 mEq/L (98-107) 07/12/18 16:26 Carbon Dioxide 24.3 mEq/L (21.0-31.0) 07/12/18 16:26 Anion Gap 12.2 (7.0-16.0) 07/12/18 16:26 BUN 10 mg/dL (7-25) 07/12/18 16:26 Creatinine 0.9 mg/dL (0.7-1.3) 07/12/18 16:26 Est GFR ( Amer) > 60.0 ml/min (>90) 07/12/18 16:26 Est GFR (Non-Af Amer) > 60.0 ml/min 07/12/18 16:26 BUN/Creatinine Ratio 11.1 07/12/18 16:26 Glucose 105 mg/dL (70-105) 07/12/18 16:26 Calcium 9.9 mg/dL (8.6-10.3) 07/12/18 16:26 Phosphorus 2.4 mg/dL (2.5-5.0) L 07/12/18 16:26 Magnesium 2.3 mg/dL (1.9-2.7) 07/12/18 16:26 Total Bilirubin 1.0 mg/dL (0.3-1.0) 07/12/18 16:26 AST 24 U/L (13-39) 07/12/18 16:26 ALT 12 U/L (7-52) 07/12/18 16:26 Alkaline Phosphatase 88 U/L (34-104) 07/12/18 16:26 Total Protein 7.2 gm/dL (6.0-8.3) 07/12/18 16:26 Albumin 4.1 gm/dL (4.2-5.5) L 07/12/18 16:26 Globulin 3.1 gm/dL 07/12/18 16:26 Albumin/Globulin Ratio 1.3 (1.0-1.8) 07/12/18 16:26 - Physical Exam Vitals and I&O: Vital Signs Temp 98.8 F 07/17/18 12:00 Pulse 75 07/17/18 12:00 Resp 20 07/17/18 12:00 BP 142/85 07/17/18 12:00 Pulse Ox 100 07/17/18 12:00 Intake & Output 07/16/18 07/17/18 07/17/18 18:59 06:59 18:59 Intake Total 560 500 Balance 560 500 Weight (lbs) 64.864 kg 64.864 kg Intake: Oral 560 500 Other: # Voids 3 3 # Bowel Movements 0 0 Stool Characteristics Soft Soft Soft Formed Formed Formed Weight Source Bedscale Bedscale Active Medications: Current Medications Hydrocortisone (Hydrocortisone 1%) 1 appl TP BID [facility] Stop: 09/12/18 19:29 Last Admin: 07/17/18 08:29 Dose: Not Given Dextrose/Sodium Chloride (D5-0.45ns) 1,000 mls @ 75 mls/hr IV .[id number] [facility] Stop: 09/10/18 23:53 Last Admin: 07/15/18 05:22 Dose: Not Given Losartan Potassium (Cozaar) 25 mg PO DAILY [facility] Stop: 09/11/18 09:59 Last Admin: 07/17/18 08:30 Dose: Not Given Risperidone (Risperdal) 0.5 mg PO BID [facility]; Protocol Stop: 09/14/18 16:59 General: Alert, No acute distress HEENT: Atraumatic Neck: Supple, JVD Cardiovascular: Regular rate, Normal S1, Normal S2 Lungs: Clear to auscultation Abdomen: Bowel sounds, Soft Assessment/Plan - Problem List Patient Problems: All Active Problems Dehydration (Acute) E86.0 Failure to thrive (Acute) [id number] H/O: CVA (cerebrovascular accident) (Acute) Z86.73 - Plan Plan: as per order sheet Nutritional Asmnt/Malnutr-PDOC - Dietary Evaluation Malnutrition Findings (Please click <Entered> for more info): Nutritional Asmnt/Malnutrition Start: 07/13/18 12: 45 Text: Status: Complete Freq: Protocol: Document 07/13/18 12:46 FRANK (Rec: 07/13/18 12:53 FRANK HOGAN- [email or web address]) Nutritional Asmnt/Malnutrition Patient General Information Diagnosis F T T, dehydration Pertinent Medical Hx/Surgical Hx CVA/TIA Subjective Information Pt sitting up in bed, shook head "no" when asked if he had an appetite, then shrugged his sholders when asked why did he not have an appetite. Current Diet Order/ Nutrition Support pureed Pertinent Medications D5 1/2NS @75ml/hr (1.8L/day, 306kcals/day) Pertinent Labs 07/12: Na 140, K 3.5, Cl 107, CO2 24.3, BUN 10, Ca 0.9, Ca 9 .9, glucose 105, Phos 2.4, Mg 2.3 Nutritional Hx/Data Height 1.88 m Height (Calculated Centimeters) 188.0 Current Weight (lbs) 63.503 kg Weight (Calculated Kilograms) 63.5 Weight (Calculated Grams) 79491.9 Body Mass Index (BMI) 17.9 Weight Status Underweight GI Symptoms GI Symptoms None Last BM 07/13 Cultural/Ethnic/Uatsdin Belief unknown Usual diet at home pureed Skin Integrity/Comment: anayeli score 17, intact Current %PO Negligible < 25% Estimated Nutritional Goals BEE in Kcals: Using Current wt Calories/Kcals/Kg 30+kcals/kg Kcals Calculated 1920+kcals/day Protein: Using Current wt Protein g/k.2+g/kg Protein Calculated 77+g/day Fluid: ml ~1920ml/day (~1ml/kcal) Nutritional Problem 1. Problem Problem Poor PO intake related to Etiology decreased appetite Signs/Symptoms: as evidenced by PO 0%. Intervention/Recommendation Comments Recommend continuing regular diet with texture per PULMONARY SPECIALIST. Consider appeitite stimulant to help with PO intake Recommend Boost Plus BID to help meet estimated needs. Expected Outcomes/Goals Expected Outcomes/Goals PO intake >75% of meals
--- NOTE | 2018-07-17 18:30 | Consultation ---
DATE OF CONSULTATION: 07/17/2018 HISTORY OF PRESENT ILLNESS: A 52-year-old male who remains mostly in his bed, withdrawn, does not want to take any medications. When I tell him that I may need to get the court involved to medicate him against his will, he states "give me the shot." The patient is eating on his own volition and bathroom being on his own. No dangerousness noted. He is not combative or aggressive by any means. He is just not taking medications and not saying anything. PAST PSYCHIATRIC HISTORY: Schizophrenia. SOCIAL HISTORY: The patient coming from a room and board. MENTAL STATUS EXAMINATION: -Bahamian male, awake, alert, not saying much. Mood not answering. Affect flat. Thought processes were difficult to assess. Thought content, difficult to assess. No suicidal gestures. No homicidal gestures. There is no current indication that he is responding to internal stimuli. PROVISIONAL DIAGNOSIS: History of schizophrenia. RECOMMENDATIONS AND PLAN: Ongoing 5150 hold. Concerns for grave disability given that the room and board does not want to take him back at this time, but in terms of dangerousness, there is no indication of dangerousness. Thus, the room and board is providing him meals. He will no longer qualify for grave disability. JOB# [id number]
--- NOTE | 2018-07-18 10:16 | Progress Notes ---
DATE: 07/18/2018 SUBJECTIVE: The patient remains selectively mute, just asks me to give him "shot." Resting comfortably, no agitation, not doing anything except lying in his bed, staring blankly. He does eat on his own volition, bathrooming on his own, appropriately dressed and groomed. No agitation, refusing all treatment and medications. ASSESSMENT: The patient appears internally preoccupied, possibly psychotic, selectively mute, does not say much, history of stroke. PLAN: We are trying to confirm a safe disposition plan. It is unclear whether or not the room and board will take him back. We are awaiting to hear back from them. In the meantime, we will initiate 14-day hold for grave disability. Continue to encourage medication compliance. [facility]# [id number]
--- NOTE | 2018-07-18 11:34 | General Progress Note ---
Subjective - Review of Systems Events since last encounter: patient awake does not want to talk no signs of pain Objective - Results Result Diagrams: 07/12/18 16:26 07/12/18 16:26 Recent Labs: Laboratory Last Values WBC 10.7 Th/cmm (4.8-10.8) 07/12/18 16:26 RBC 4.77 Mil/cmm (4.30-5.70) 07/12/18 16:26 Hgb 13.8 gm/dL (12-16) 07/12/18 16:26 Hct 41.9 % (41.0-60) 07/12/18 16:26 MCV 87.9 fl (80-99) 07/12/18 16:26 MCH 28.9 pg (26.0-30.0) 07/12/18 16: MCHC Differential 32.9 pg (28.0-36.0) 07/12/18 16:26 RDW 14.4 % (11.5-20.0) 07/12/18 16:26 Plt Count 245 Th/cmm (150-400) 07/12/18 16:26 MPV 8.8 fl 07/12/18 16:26 Neutrophils % 63.0 % (40.0-80.0) 07/12/18 16:26 Lymphocytes % 15.4 % (20.0-50.0) L 07/12/18 16:26 Monocytes % 4.8 % (2.0-10.0) 07/12/18 16:26 Eosinophils % 16.8 % (0.0-5.0) H 07/12/18 16:26 Basophils % 0.0 % (0.0-2.0) 07/12/18 16:26 Neutrophils (Manual) Not Reportable 07/12/18 16: Lymphocytes 0 % (20-50) L 07/12/18 16:26 Sodium 140 mEq/L (136-145) 07/12/18 16:26 Potassium 3.5 mEq/L (3.5-5.1) 07/12/18 16:26 Chloride 107 mEq/L (98-107) 07/12/18 16:26 Carbon Dioxide 24.3 mEq/L (21.0-31.0) 07/12/18 16:26 Anion Gap 12.2 (7.0-16.0) 07/12/18 16:26 BUN 10 mg/dL (7-25) 07/12/18 16:26 Creatinine 0.9 mg/dL (0.7-1.3) 07/12/18 16:26 Est GFR ( Amer) > 60.0 ml/min (>90) 07/12/18 16:26 Est GFR (Non-Af Amer) > 60.0 ml/min 07/12/18 16:26 BUN/Creatinine Ratio 11.1 07/12/18 16:26 Glucose 105 mg/dL (70-105) 07/12/18 16:26 Calcium 9.9 mg/dL (8.6-10.3) 07/12/18 16:26 Phosphorus 2.4 mg/dL (2.5-5.0) L 07/12/18 16:26 Magnesium 2.3 mg/dL (1.9-2.7) 07/12/18 16:26 Total Bilirubin 1.0 mg/dL (0.3-1.0) 07/12/18 16:26 AST 24 U/L (13-39) 07/12/18 16:26 ALT 12 U/L (7-52) 07/12/18 16:26 Alkaline Phosphatase 88 U/L (34-104) 07/12/18 16:26 Total Protein 7.2 gm/dL (6.0-8.3) 07/12/18 16:26 Albumin 4.1 gm/dL (4.2-5.5) L 07/12/18 16:26 Globulin 3.1 gm/dL 07/12/18 16:26 Albumin/Globulin Ratio 1.3 (1.0-1.8) 07/12/18 16:26 - Physical Exam Vitals and I&O: Vital Signs Temp 98.8 F 07/17/18 12:00 Pulse 75 07/17/18 12:00 Resp 17 07/17/18 20:00 BP 142/85 07/17/18 12:00 Pulse Ox 100 07/17/18 12:00 Intake & Output 07/17/18 07/18/18 07/18/18 18:59 06:59 18:59 Intake Total 800 300 Balance 800 300 Weight (lbs) 64.864 kg 64.495 kg Intake: Oral 800 300 Other: # Voids 4 3 # Bowel Movements 1 0 Stool Characteristics Soft Soft Formed Formed Weight Source Bedscale Bedscale Active Medications: Current Medications Hydrocortisone (Hydrocortisone 1%) 1 appl TP BID [facility] Stop: 09/12/18 19:29 Last Admin: 07/18/18 08:29 Dose: Not Given Dextrose/Sodium Chloride (D5-0.45ns) 1,000 mls @ 75 mls/hr IV .[id number] [facility] Stop: 09/10/18 23:53 Last Admin: 07/15/18 05:22 Dose: Not Given Losartan Potassium (Cozaar) 25 mg PO DAILY [facility] Stop: 09/11/18 09:59 Last Admin: 07/18/18 08:29 Dose: Not Given Risperidone (Risperdal) 0.5 mg PO BID [facility]; Protocol Stop: 09/14/18 16:59 General: Alert, No acute distress HEENT: Atraumatic Neck: Supple, JVD Cardiovascular: Regular rate, Normal S1, Normal S2 Lungs: Clear to auscultation Abdomen: Bowel sounds, Soft Assessment/Plan - Problem List Patient Problems: All Active Problems Dehydration (Acute) E86.0 Failure to thrive (Acute) [id number] H/O: CVA (cerebrovascular accident) (Acute) Z86.73 - Plan Plan: as per order sheet Nutritional Asmnt/Malnutr-PDOC - Dietary Evaluation Malnutrition Findings (Please click <Entered> for more info): Nutritional Asmnt/Malnutrition Start: 07/13/18 12: 45 Text: Status: Complete Freq: Protocol: Document 07/13/18 12:46 FRANK (Rec: 07/13/18 12:53 FRANK HOGAN- [email or web address]) Nutritional Asmnt/Malnutrition Patient General Information Diagnosis F T T, dehydration Pertinent Medical Hx/Surgical Hx CVA/TIA Subjective Information Pt sitting up in bed, shook head "no" when asked if he had an appetite, then shrugged his sholders when asked why did he not have an appetite. Current Diet Order/ Nutrition Support pureed Pertinent Medications D5 1/2NS @75ml/hr (1.8L/day, 306kcals/day) Pertinent Labs 07/12: Na 140, K 3.5, Cl 107, CO2 24.3, BUN 10, Ca 0.9, Ca 9 .9, glucose 105, Phos 2.4, Mg 2.3 Nutritional Hx/Data Height 1.88 m Height (Calculated Centimeters) 188.0 Current Weight (lbs) 63.503 kg Weight (Calculated Kilograms) 63.5 Weight (Calculated Grams) 56756.9 Body Mass Index (BMI) 17.9 Weight Status Underweight GI Symptoms GI Symptoms None Last BM 07/13 Cultural/Ethnic/[place] Belief unknown Usual diet at home pureed Skin Integrity/Comment: anayeli score 17, intact Current %PO Negligible < 25% Estimated Nutritional Goals BEE in Kcals: Using Current wt Calories/Kcals/Kg 30+kcals/kg Kcals Calculated 1920+kcals/day Protein: Using Current wt Protein g/k.2+g/kg Protein Calculated 77+g/day Fluid: ml ~1920ml/day (~1ml/kcal) Nutritional Problem 1. Problem Problem Poor PO intake related to Etiology decreased appetite Signs/Symptoms: as evidenced by PO 0%. Intervention/Recommendation Comments Recommend continuing regular diet with texture per ADMINISTRATIVE INTERN. Consider appeitite stimulant to help with PO intake Recommend Boost Plus BID to help meet estimated needs. Expected Outcomes/Goals Expected Outcomes/Goals PO intake >75% of meals
--- NOTE | 2018-07-19 16:03 | Internal Medicine Prog Note ---
Internal Medicine Subjective - Subjective Service Date: 07/19/18 Patient seen and examined:: with staff Patient is:: awake Per staff patient has:: tolerating meds, refusing care Internal Medicine Objective - Results Result Diagrams: 07/12/18 16:26 07/12/18 16:26 Recent Labs: Laboratory Last Values WBC 10.7 Th/cmm (4.8-10.8) 07/12/18 16:26 RBC 4.77 Mil/cmm (4.30-5.70) 07/12/18 16:26 Hgb 13.8 gm/dL (12-16) 07/12/18 16:26 Hct 41.9 % (41.0-60) 07/12/18 16:26 MCV 87.9 fl (80-99) 07/12/18 16:26 MCH 28.9 pg (26.0-30.0) 07/12/18 16: MCHC Differential 32.9 pg (28.0-36.0) 07/12/18 16:26 RDW 14.4 % (11.5-20.0) 07/12/18 16:26 Plt Count 245 Th/cmm (150-400) 07/12/18 16:26 MPV 8.8 fl 07/12/18 16:26 Neutrophils % 63.0 % (40.0-80.0) 07/12/18 16:26 Lymphocytes % 15.4 % (20.0-50.0) L 07/12/18 16:26 Monocytes % 4.8 % (2.0-10.0) 07/12/18 16:26 Eosinophils % 16.8 % (0.0-5.0) H 07/12/18 16:26 Basophils % 0.0 % (0.0-2.0) 07/12/18 16:26 Neutrophils (Manual) Not Reportable 07/12/18 16:26 Lymphocytes 0 % (20-50) L 07/12/18 16:26 Sodium 140 mEq/L (136-145) 07/12/18 16:26 Potassium 3.5 mEq/L (3.5-5.1) 07/12/18 16:26 Chloride 107 mEq/L (98-107) 07/12/18 16:26 Carbon Dioxide 24.3 mEq/L (21.0-31.0) 07/12/18 16:26 Anion Gap 12.2 (7.0-16.0) 07/12/18 16:26 BUN 10 mg/dL (7-25) 07/12/18 16:26 Creatinine 0.9 mg/dL (0.7-1.3) 07/12/18 16:26 Est GFR ( Amer) > 60.0 ml/min (>90) 07/12/18 16:26 Est GFR (Non-Af Amer) > 60.0 ml/min 07/12/18 16:26 BUN/Creatinine Ratio 11.1 07/12/18 16:26 Glucose 105 mg/dL (70-105) 07/12/18 16:26 Calcium 9.9 mg/dL (8.6-10.3) 07/12/18 16:26 Phosphorus 2.4 mg/dL (2.5-5.0) L 07/12/18 16:26 Magnesium 2.3 mg/dL (1.9-2.7) 07/12/18 16:26 Total Bilirubin 1.0 mg/dL (0.3-1.0) 07/12/18 16:26 AST 24 U/L (13-39) 07/12/18 16:26 ALT 12 U/L (7-52) 07/12/18 16:26 Alkaline Phosphatase 88 U/L (34-104) 07/12/18 16:26 Total Protein 7.2 gm/dL (6.0-8.3) 07/12/18 16:26 Albumin 4.1 gm/dL (4.2-5.5) L 07/12/18 16:26 Globulin 3.1 gm/dL 07/12/18 16:26 Albumin/Globulin Ratio 1.3 (1.0-1.8) 07/12/18 16:26 - Physical Exam Vitals and I&O: Vital Signs Temp 98.8 F 07/17/18 12:00 Pulse 75 07/17/18 12:00 Resp 18 07/19/18 08:00 BP 142/85 07/17/18 12:00 Pulse Ox 100 07/17/18 12:00 Intake & Output 07/18/18 07/19/18 07/19/18 18:59 06:59 18:59 Intake Total 1200 300 Balance 1200 300 Weight (lbs) 144 lb 144 lb Intake: Oral 1200 300 Other: # Voids 4 # Bowel Movements 0 Stool Characteristics Soft Soft Soft Formed Formed Formed Weight Source Bedscale Bedscale Active Medications: Current Medications Hydrocortisone (Hydrocortisone 1%) 1 appl TP BID [facility] Stop: 09/12/18 19:29 Last Admin: 07/19/18 09:08 Dose: Not Given Dextrose/Sodium Chloride (D5-0.45ns) 1,000 mls @ 75 mls/hr IV .[id number] [facility] Stop: 09/10/18 23:53 Last Admin: 07/15/18 05:22 Dose: Not Given Losartan Potassium (Cozaar) 25 mg PO DAILY [facility] Stop: 09/11/18 09:59 Last Admin: 07/19/18 09:08 Dose: Not Given Risperidone (Risperdal) 0.5 mg PO BID [facility]; Protocol Stop: 09/14/18 16:59 Last Admin: 07/19/18 09:08 Dose: Not Given General: weak, alert HEENT: NC/AT, PERRLA Neck: Supple Lungs: CTAB Cardiovascular: RRR, Normal S1, Normal S2 Extremities: excoriation, rash Neurological: alert Internal Medicine Assmt/Plan - Assessment Assessment: Dehydration (Acute) E86.0 Failure to thrive (Acute) [id number] H/O: CVA (cerebrovascular accident) (Acute) Z86.73 - Plan Plan: FOLLOW UP LABS IN AM psych follow up continue current plan of care Nutritional Asmnt/Malnutr-PDOC - Dietary Evaluation Malnutrition Findings (Please click <Entered> for more info): Nutritional Asmnt/Malnutrition Start: 07/13/18 12: 45 Text: Status: Complete Freq: Protocol: Document 07/13/18 12:46 FRANK (Rec: 07/13/18 12:53 FRANK HOGAN- FNS1) Nutritional Asmnt/Malnutrition Patient General Information Diagnosis F T T, dehydration Pertinent Medical Hx/Surgical Hx CVA/TIA Subjective Information Pt sitting up in bed, shook head "no" when asked if he had an appetite, then shrugged his sholders when asked why did he not have an appetite. Current Diet Order/ Nutrition Support pureed Pertinent Medications D5 1/2NS @75ml/hr (1.8L/day, 306kcals/day) Pertinent Labs 07/12: Na 140, K 3.5, Cl 107, CO2 24.3, BUN 10, Ca 0.9, Ca 9 .9, glucose 105, Phos 2.4, Mg 2.3 Nutritional Hx/Data Height 6 ft 2 in Height (Calculated Centimeters) 188.0 Current Weight (lbs) 140 lb Weight (Calculated Kilograms) 63.5 Weight (Calculated Grams) 02281.9 Body Mass Index (BMI) 17.9 Weight Status Underweight GI Symptoms GI Symptoms None Last BM 07/13 Cultural/Ethnic/Evangelical Belief unknown Usual diet at home pureed Skin Integrity/Comment: anayeli score 17, intact Current %PO Negligible < 25% Estimated Nutritional Goals BEE in Kcals: Using Current wt Calories/Kcals/Kg 30+kcals/kg Kcals Calculated 1920+kcals/day Protein: Using Current wt Protein g/k.2+g/kg Protein Calculated 77+g/day Fluid: ml ~1920ml/day (~1ml/kcal) Nutritional Problem 1. Problem Problem Poor PO intake related to Etiology decreased appetite Signs/Symptoms: as evidenced by PO 0%. Intervention/Recommendation Comments Recommend continuing regular diet with texture per TIRE FABRICATOR. Consider appeitite stimulant to help with PO intake Recommend Boost Plus BID to help meet estimated needs. Expected Outcomes/Goals Expected Outcomes/Goals PO intake >75% of meals
--- NOTE | 2018-07-20 22:23 | Progress Notes ---
DATE: 07/20/2018 SUBJECTIVE: The patient was seen in his room. The patient appears to be guarded and irritable, refusing care. Otherwise, the patient appears to be in no acute distress. OBJECTIVE: VITAL SIGNS: Temperature 97.2, heart rate 75, blood pressure 135/75, respirations of 18, and 96% on room air. HEENT: Head is atraumatic and normocephalic. Eyes: Bilateral conjunctivae are clear. Bilateral pupils are equally round and reactive. NECK: Supple. No JVD. CARDIOVASCULAR: S1 and S2, without murmur. PULMONARY: Clear to auscultation. GASTROINTESTINAL: Soft and nontender without guarding. Positive bowel sounds. MUSCULOSKELETAL: No clubbing. No cyanosis noted. ASSESSMENT: 1. Mood disorder. 2. Dehydration. 3. Failure to thrive. 4. History of cerebrovascular accident. PLAN: We will keep the patient inpatient. We will follow up with the social studies department chair and senior case manager for placement. Treatment plans were discussed with the patient's nurse. Treatment plans were discussed with Dr. Guzman. JOB# [id number]
--- NOTE | 2018-07-21 11:21 | General Progress Note ---
Subjective - Review of Systems Events since last encounter: patient awake irritable noncompliant Objective - Results Result Diagrams: 07/12/18 16:26 07/12/18 16:26 Recent Labs: Laboratory Last Values WBC 10.7 Th/cmm (4.8-10.8) 07/12/18 16:26 RBC 4.77 Mil/cmm (4.30-5.70) 07/12/18 16:26 Hgb 13.8 gm/dL (12-16) 07/12/18 16:26 Hct 41.9 % (41.0-60) 07/12/18 16:26 MCV 87.9 fl (80-99) 07/12/18 16:26 MCH 28.9 pg (26.0-30.0) 07/12/18 16: MCHC Differential 32.9 pg (28.0-36.0) 07/12/18 16:26 RDW 14.4 % (11.5-20.0) 07/12/18 16:26 Plt Count 245 Th/cmm (150-400) 07/12/18 16:26 MPV 8.8 fl 07/12/18 16:26 Neutrophils % 63.0 % (40.0-80.0) 07/12/18 16:26 Lymphocytes % 15.4 % (20.0-50.0) L 07/12/18 16:26 Monocytes % 4.8 % (2.0-10.0) 07/12/18 16:26 Eosinophils % 16.8 % (0.0-5.0) H 07/12/18 16:26 Basophils % 0.0 % (0.0-2.0) 07/12/18 16:26 Neutrophils (Manual) Not Reportable 07/12/18 16:26 Lymphocytes 0 % (20-50) L 07/12/18 16:26 Sodium 140 mEq/L (136-145) 07/12/18 16:26 Potassium 3.5 mEq/L (3.5-5.1) 07/12/18 16:26 Chloride 107 mEq/L (98-107) 07/12/18 16:26 Carbon Dioxide 24.3 mEq/L (21.0-31.0) 07/12/18 16:26 Anion Gap 12.2 (7.0-16.0) 07/12/18 16:26 BUN 10 mg/dL (7-25) 07/12/18 16:26 Creatinine 0.9 mg/dL (0.7-1.3) 07/12/18 16:26 Est GFR ( Amer) > 60.0 ml/min (>90) 07/12/18 16:26 Est GFR (Non-Af Amer) > 60.0 ml/min 07/12/18 16:26 BUN/Creatinine Ratio 11.1 07/12/18 16:26 Glucose 105 mg/dL (70-105) 07/12/18 16:26 Calcium 9.9 mg/dL (8.6-10.3) 07/12/18 16:26 Phosphorus 2.4 mg/dL (2.5-5.0) L 07/12/18 16:26 Magnesium 2.3 mg/dL (1.9-2.7) 07/12/18 16:26 Total Bilirubin 1.0 mg/dL (0.3-1.0) 07/12/18 16:26 AST 24 U/L (13-39) 07/12/18 16:26 ALT 12 U/L (7-52) 07/12/18 16:26 Alkaline Phosphatase 88 U/L (34-104) 07/12/18 16:26 Total Protein 7.2 gm/dL (6.0-8.3) 07/12/18 16:26 Albumin 4.1 gm/dL (4.2-5.5) L 07/12/18 16:26 Globulin 3.1 gm/dL 07/12/18 16:26 Albumin/Globulin Ratio 1.3 (1.0-1.8) 07/12/18 16:26 - Physical Exam Vitals and I&O: Vital Signs Temp 97.2 F 07/19/18 22:32 Pulse 75 07/19/18 22:32 Resp 18 07/21/18 08:00 BP 135/75 07/19/18 22:32 Pulse Ox 96 07/19/18 22:32 Intake & Output 07/20/18 07/21/18 07/21/18 18:59 06:59 18:59 Intake Total 1800 Balance 1800 Weight (lbs) 63.503 kg 66.361 kg Intake: Oral 1800 Other: # Voids 3 # Bowel Movements 1 Weight Source Bedscale Bedscale Active Medications: Current Medications Hydrocortisone (Hydrocortisone 1%) 1 appl TP BID [facility] Stop: 09/12/18 19:29 Last Admin: 07/21/18 10:01 Dose: Not Given Dextrose/Sodium Chloride (D5-0.45ns) 1,000 mls @ 75 mls/hr IV .[id number] [facility] Stop: 09/10/18 23:53 Last Admin: 07/15/18 05:22 Dose: Not Given Losartan Potassium (Cozaar) 25 mg PO DAILY [facility] Stop: 09/11/18 09:59 Last Admin: 07/21/18 10:01 Dose: Not Given Risperidone (Risperdal) 0.5 mg PO BID [facility]; Protocol Stop: 09/14/18 16:59 Last Admin: 07/21/18 10:01 Dose: Not Given General: Alert, No acute distress HEENT: Atraumatic Neck: Supple, JVD Cardiovascular: Regular rate, Normal S1, Normal S2 Lungs: Clear to auscultation Abdomen: Bowel sounds, Soft Assessment/Plan - Problem List Patient Problems: All Active Problems Dehydration (Acute) E86.0 Failure to thrive (Acute) [id number] H/O: CVA (cerebrovascular accident) (Acute) Z86.73 - Plan Plan: as per order sheet Nutritional Asmnt/Malnutr-PDOC - Dietary Evaluation Malnutrition Findings (Please click <Entered> for more info): Nutritional Asmnt/Malnutrition Start: 07/13/18 12: 45 Text: Status: Complete Freq: Protocol: Document 07/13/18 12:46 FRANK (Rec: 07/13/18 12:53 FRANK HOGAN- [email or web address]) Nutritional Asmnt/Malnutrition Patient General Information Diagnosis F T T, dehydration Pertinent Medical Hx/Surgical Hx CVA/TIA Subjective Information Pt sitting up in bed, shook head "no" when asked if he had an appetite, then shrugged his sholders when asked why did he not have an appetite. Current Diet Order/ Nutrition Support pureed Pertinent Medications D5 1/2NS @75ml/hr (1.8L/day, 306kcals/day) Pertinent Labs 07/12: Na 140, K 3.5, Cl 107, CO2 24.3, BUN 10, Ca 0.9, Ca 9 .9, glucose 105, Phos 2.4, Mg 2.3 Nutritional Hx/Data Height 1.88 m Height (Calculated Centimeters) 188.0 Current Weight (lbs) 63.503 kg Weight (Calculated Kilograms) 63.5 Weight (Calculated Grams) 11992.9 Body Mass Index (BMI) 17.9 Weight Status Underweight GI Symptoms GI Symptoms None Last BM 07/13 Cultural/Ethnic/Presybeterian Belief unknown Usual diet at home pureed Skin Integrity/Comment: anayeli score 17, intact Current %PO Negligible < 25% Estimated Nutritional Goals BEE in Kcals: Using Current wt Calories/Kcals/Kg 30+kcals/kg Kcals Calculated 1920+kcals/day Protein: Using Current wt Protein g/k.2+g/kg Protein Calculated 77+g/day Fluid: ml ~1920ml/day (~1ml/kcal) Nutritional Problem 1. Problem Problem Poor PO intake related to Etiology decreased appetite Signs/Symptoms: as evidenced by PO 0%. Intervention/Recommendation Comments Recommend continuing regular diet with texture per [employer]. Consider appeitite stimulant to help with PO intake Recommend Boost Plus BID to help meet estimated needs. Expected Outcomes/Goals Expected Outcomes/Goals PO intake >75% of meals
--- NOTE | 2018-07-22 15:21 | General Progress Note ---
Subjective - Review of Systems Events since last encounter: patient is awake in no acute distress Objective - Results Result Diagrams: 07/12/18 16:26 07/12/18 16:26 Recent Labs: Laboratory Last Values WBC 10.7 Th/cmm (4.8-10.8) 07/12/18 16:26 RBC 4.77 Mil/cmm (4.30-5.70) 07/12/18 16:26 Hgb 13.8 gm/dL (12-16) 07/12/18 16:26 Hct 41.9 % (41.0-60) 07/12/18 16:26 MCV 87.9 fl (80-99) 07/12/18 16:26 MCH 28.9 pg (26.0-30.0) 07/12/18 16: MCHC Differential 32.9 pg (28.0-36.0) 07/12/18 16:26 RDW 14.4 % (11.5-20.0) 07/12/18 16:26 Plt Count 245 Th/cmm (150-400) 07/12/18 16:26 MPV 8.8 fl 07/12/18 16:26 Neutrophils % 63.0 % (40.0-80.0) 07/12/18 16:26 Lymphocytes % 15.4 % (20.0-50.0) L 07/12/18 16:26 Monocytes % 4.8 % (2.0-10.0) 07/12/18 16:26 Eosinophils % 16.8 % (0.0-5.0) H 07/12/18 16:26 Basophils % 0.0 % (0.0-2.0) 07/12/18 16:26 Neutrophils (Manual) Not Reportable 07/12/18 16:26 Lymphocytes 0 % (20-50) L 07/12/18 16:26 Sodium 140 mEq/L (136-145) 07/12/18 16:26 Potassium 3.5 mEq/L (3.5-5.1) 07/12/18 16:26 Chloride 107 mEq/L (98-107) 07/12/18 16:26 Carbon Dioxide 24.3 mEq/L (21.0-31.0) 07/12/18 16:26 Anion Gap 12.2 (7.0-16.0) 07/12/18 16:26 BUN 10 mg/dL (7-25) 07/12/18 16:26 Creatinine 0.9 mg/dL (0.7-1.3) 07/12/18 16:26 Est GFR ( Amer) > 60.0 ml/min (>90) 07/12/18 16:26 Est GFR (Non-Af Amer) > 60.0 ml/min 07/12/18 16:26 BUN/Creatinine Ratio 11.1 07/12/18 16:26 Glucose 105 mg/dL (70-105) 07/12/18 16:26 Calcium 9.9 mg/dL (8.6-10.3) 07/12/18 16:26 Phosphorus 2.4 mg/dL (2.5-5.0) L 07/12/18 16:26 Magnesium 2.3 mg/dL (1.9-2.7) 07/12/18 16:26 Total Bilirubin 1.0 mg/dL (0.3-1.0) 07/12/18 16:26 AST 24 U/L (13-39) 07/12/18 16:26 ALT 12 U/L (7-52) 07/12/18 16:26 Alkaline Phosphatase 88 U/L (34-104) 07/12/18 16:26 Total Protein 7.2 gm/dL (6.0-8.3) 07/12/18 16:26 Albumin 4.1 gm/dL (4.2-5.5) L 07/12/18 16:26 Globulin 3.1 gm/dL 07/12/18 16:26 Albumin/Globulin Ratio 1.3 (1.0-1.8) 07/12/18 16:26 - Physical Exam Vitals and I&O: Vital Signs Temp 97.2 F 07/19/18 22:32 Pulse 75 07/19/18 22:32 Resp 20 07/22/18 08:00 BP 135/75 07/19/18 22:32 Pulse Ox 96 07/19/18 22:32 Intake & Output 07/21/18 07/22/18 07/22/18 18:59 06:59 18:59 Intake Total 1800 800 Balance 1800 800 Weight (lbs) 66.361 kg 65.771 kg Intake: Oral 1800 800 Other: # Voids 3 3 # Bowel Movements 0 Weight Source Bedscale Bedscale Active Medications: Current Medications Hydrocortisone (Hydrocortisone 1%) 1 appl TP BID [facility] Stop: 09/12/18 19:29 Last Admin: 07/22/18 09:16 Dose: Not Given Dextrose/Sodium Chloride (D5-0.45ns) 1,000 mls @ 75 mls/hr IV .[id number] [facility] Stop: 09/10/18 23:53 Last Admin: 07/15/18 05:22 Dose: Not Given Losartan Potassium (Cozaar) 25 mg PO DAILY [facility] Stop: 09/11/18 09:59 Last Admin: 07/22/18 09:16 Dose: Not Given Risperidone (Risperdal) 0.5 mg PO BID [facility]; Protocol Stop: 09/14/18 16:59 Last Admin: 07/22/18 09:16 Dose: Not Given General: Alert, No acute distress HEENT: Atraumatic Neck: Supple, JVD Cardiovascular: Regular rate, Normal S1, Normal S2 Lungs: Clear to auscultation Abdomen: Bowel sounds, Soft Assessment/Plan - Problem List Patient Problems: All Active Problems Dehydration (Acute) E86.0 Failure to thrive (Acute) [id number] H/O: CVA (cerebrovascular accident) (Acute) Z86.73 - Plan Plan: as per order sheet Nutritional Asmnt/Malnutr-PDOC - Dietary Evaluation Malnutrition Findings (Please click <Entered> for more info): Nutritional Asmnt/Malnutrition Start: 07/13/18 12: 45 Text: Status: Complete Freq: Protocol: Document 07/13/18 12:46 FRANK (Rec: 07/13/18 12:53 FRANK HOGAN- FNS1) Nutritional Asmnt/Malnutrition Patient General Information Diagnosis F T T, dehydration Pertinent Medical Hx/Surgical Hx CVA/TIA Subjective Information Pt sitting up in bed, shook head "no" when asked if he had an appetite, then shrugged his sholders when asked why did he not have an appetite. Current Diet Order/ Nutrition Support pureed Pertinent Medications D5 1/2NS @75ml/hr (1.8L/day, 306kcals/day) Pertinent Labs 07/12: Na 140, K 3.5, Cl 107, CO2 24.3, BUN 10, Ca 0.9, Ca 9 .9, glucose 105, Phos 2.4, Mg 2.3 Nutritional Hx/Data Height 1.88 m Height (Calculated Centimeters) 188.0 Current Weight (lbs) 63.503 kg Weight (Calculated Kilograms) 63.5 Weight (Calculated Grams) 48380.9 Body Mass Index (BMI) 17.9 Weight Status Underweight GI Symptoms GI Symptoms None Last BM 07/13 Cultural/Ethnic/Congregational Belief unknown Usual diet at home pureed Skin Integrity/Comment: anayeli score 17, intact Current %PO Negligible < 25% Estimated Nutritional Goals BEE in Kcals: Using Current wt Calories/Kcals/Kg 30+kcals/kg Kcals Calculated 1920+kcals/day Protein: Using Current wt Protein g/k.2+g/kg Protein Calculated 77+g/day Fluid: ml ~1920ml/day (~1ml/kcal) Nutritional Problem 1. Problem Problem Poor PO intake related to Etiology decreased appetite Signs/Symptoms: as evidenced by PO 0%. Intervention/Recommendation Comments Recommend continuing regular diet with texture per RESPIRATORY DIRECTOR. Consider appeitite stimulant to help with PO intake Recommend Boost Plus BID to help meet estimated needs. Expected Outcomes/Goals Expected Outcomes/Goals PO intake >75% of meals
--- NOTE | 2018-07-23 15:56 | Consultation ---
DATE OF CONSULTATION: 07/23/2018 HISTORY OF PRESENT ILLNESS: The patient remains selectively mute, bizarre, asking for me to give him a shot, staring blankly, ____ on his own, eating on his own, volition, just lying in bed, staring blankly, appearing internally preoccupied. ASSESSMENT: The patient remains internally preoccupied, concerns for underlying psychosis, acting strange, history of stroke, selectively mute. We will talk to social work case manager. PLAN: We will continue to monitor. Continue 14-day hold until placement can be confirmed. I will consider a [place] petition. JOB# [id number]
--- NOTE | 2018-07-23 19:53 | Internal Medicine Prog Note ---
Internal Medicine Subjective - Subjective Service Date: 07/23/18 Patient is:: awake Per staff patient has:: tolerating meds, refusing care Internal Medicine Objective - Results Result Diagrams: 07/12/18 16:26 07/12/18 16:26 Recent Labs: Laboratory Last Values WBC 10.7 Th/cmm (4.8-10.8) 07/12/18 16:26 RBC 4.77 Mil/cmm (4.30-5.70) 07/12/18 16:26 Hgb 13.8 gm/dL (12-16) 07/12/18 16:26 Hct 41.9 % (41.0-60) 07/12/18 16:26 MCV 87.9 fl (80-99) 07/12/18 16:26 MCH 28.9 pg (26.0-30.0) 07/12/18 16: MCHC Differential 32.9 pg (28.0-36.0) 07/12/18 16:26 RDW 14.4 % (11.5-20.0) 07/12/18 16:26 Plt Count 245 Th/cmm (150-400) 07/12/18 16:26 MPV 8.8 fl 07/12/18 16:26 Neutrophils % 63.0 % (40.0-80.0) 07/12/18 16:26 Lymphocytes % 15.4 % (20.0-50.0) L 07/12/18 16:26 Monocytes % 4.8 % (2.0-10.0) 07/12/18 16:26 Eosinophils % 16.8 % (0.0-5.0) H 07/12/18 16:26 Basophils % 0.0 % (0.0-2.0) 07/12/18 16:26 Neutrophils (Manual) Not Reportable 07/12/18 16:26 Lymphocytes 0 % (20-50) L 07/12/18 16:26 Sodium 140 mEq/L (136-145) 07/12/18 16:26 Potassium 3.5 mEq/L (3.5-5.1) 07/12/18 16:26 Chloride 107 mEq/L (98-107) 07/12/18 16:26 Carbon Dioxide 24.3 mEq/L (21.0-31.0) 07/12/18 16:26 Anion Gap 12.2 (7.0-16.0) 07/12/18 16:26 BUN 10 mg/dL (7-25) 07/12/18 16:26 Creatinine 0.9 mg/dL (0.7-1.3) 07/12/18 16:26 Est GFR ( Amer) > 60.0 ml/min (>90) 07/12/18 16:26 Est GFR (Non-Af Amer) > 60.0 ml/min 07/12/18 16:26 BUN/Creatinine Ratio 11.1 07/12/18 16:26 Glucose 105 mg/dL (70-105) 07/12/18 16:26 Calcium 9.9 mg/dL (8.6-10.3) 07/12/18 16:26 Phosphorus 2.4 mg/dL (2.5-5.0) L 07/12/18 16:26 Magnesium 2.3 mg/dL (1.9-2.7) 07/12/18 16:26 Total Bilirubin 1.0 mg/dL (0.3-1.0) 07/12/18 16:26 AST 24 U/L (13-39) 07/12/18 16:26 ALT 12 U/L (7-52) 07/12/18 16:26 Alkaline Phosphatase 88 U/L (34-104) 07/12/18 16:26 Total Protein 7.2 gm/dL (6.0-8.3) 07/12/18 16:26 Albumin 4.1 gm/dL (4.2-5.5) L 07/12/18 16:26 Globulin 3.1 gm/dL 07/12/18 16:26 Albumin/Globulin Ratio 1.3 (1.0-1.8) 07/12/18 16:26 - Physical Exam Vitals and I&O: Vital Signs Temp 97.2 F 07/19/18 22:32 Pulse 75 07/19/18 22:32 Resp 20 07/23/18 08:00 BP 135/75 07/19/18 22:32 Pulse Ox 96 07/19/18 22:32 Intake & Output 07/23/18 07/23/18 07/24/18 06:59 18:59 06:59 Intake Total 270 1250 Balance 270 1250 Weight (lbs) 146 lb 146 lb Intake: Oral 270 1250 Other: # Voids 1 4 # Bowel Movements 1 Weight Source Bedscale Bedscale Active Medications: Current Medications Hydrocortisone (Hydrocortisone 1%) 1 appl TP BID [facility] Stop: 09/12/18 19:29 Last Admin: 07/23/18 17:00 Dose: Not Given Dextrose/Sodium Chloride (D5-0.45ns) 1,000 mls @ 75 mls/hr IV .[id number] [facility] Stop: 09/10/18 23:53 Last Admin: 07/15/18 05:22 Dose: Not Given Losartan Potassium (Cozaar) 25 mg PO DAILY [facility] Stop: 09/11/18 09:59 Last Admin: 07/23/18 09:38 Dose: Not Given Risperidone (Risperdal) 0.5 mg PO BID [facility]; Protocol Stop: 09/14/18 16:59 Last Admin: 07/23/18 17:00 Dose: Not Given General: weak, alert HEENT: NC/AT, PERRLA Neck: Supple Lungs: CTAB Cardiovascular: RRR, Normal S1, Normal S2 Extremities: excoriation, rash Neurological: alert Internal Medicine Assmt/Plan - Assessment Assessment: Dehydration (Acute) E86.0 Failure to thrive (Acute) [id number] H/O: CVA (cerebrovascular accident) (Acute) Z86.73 - Plan Plan: FOLLOW UP LABS IN AM psych follow up continue current plan of care Nutritional Asmnt/Malnutr-PDOC - Dietary Evaluation Malnutrition Findings (Please click <Entered> for more info): Nutritional Asmnt/Malnutrition Start: 07/13/18 12: 45 Text: Status: Complete Freq: Protocol: Document 07/13/18 12:46 FRANK (Rec: 07/13/18 12:53 FRANK HOGAN- [email or web address]) Nutritional Asmnt/Malnutrition Patient General Information Diagnosis F T T, dehydration Pertinent Medical Hx/Surgical Hx CVA/TIA Subjective Information Pt sitting up in bed, shook head "no" when asked if he had an appetite, then shrugged his sholders when asked why did he not have an appetite. Current Diet Order/ Nutrition Support pureed Pertinent Medications D5 1/2NS @75ml/hr (1.8L/day, 306kcals/day) Pertinent Labs 07/12: Na 140, K 3.5, Cl 107, CO2 24.3, BUN 10, Ca 0.9, Ca 9 .9, glucose 105, Phos 2.4, Mg 2.3 Nutritional Hx/Data Height 6 ft 2 in Height (Calculated Centimeters) 188.0 Current Weight (lbs) 140 lb Weight (Calculated Kilograms) 63.5 Weight (Calculated Grams) 39588.9 Body Mass Index (BMI) 17.9 Weight Status Underweight GI Symptoms GI Symptoms None Last BM 07/13 Cultural/Ethnic/Taoism Belief unknown Usual diet at home pureed Skin Integrity/Comment: anayeli score 17, intact Current %PO Negligible < 25% Estimated Nutritional Goals BEE in Kcals: Using Current wt Calories/Kcals/Kg 30+kcals/kg Kcals Calculated 1920+kcals/day Protein: Using Current wt Protein g/k.2+g/kg Protein Calculated 77+g/day Fluid: ml ~1920ml/day (~1ml/kcal) Nutritional Problem 1. Problem Problem Poor PO intake related to Etiology decreased appetite Signs/Symptoms: as evidenced by PO 0%. Intervention/Recommendation Comments Recommend continuing regular diet with texture per [employer]. Consider appeitite stimulant to help with PO intake Recommend Boost Plus BID to help meet estimated needs. Expected Outcomes/Goals Expected Outcomes/Goals PO intake >75% of meals
--- NOTE | 2018-07-24 12:10 | General Progress Note ---
Subjective - Review of Systems Events since last encounter: patient noncompliant with care patient awake but weak Objective - Results Result Diagrams: 07/12/18 16:26 07/12/18 16:26 Recent Labs: Laboratory Last Values WBC 10.7 Th/cmm (4.8-10.8) 07/12/18 16:26 RBC 4.77 Mil/cmm (4.30-5.70) 07/12/18 16:26 Hgb 13.8 gm/dL (12-16) 07/12/18 16:26 Hct 41.9 % (41.0-60) 07/12/18 16:26 MCV 87.9 fl (80-99) 07/12/18 16:26 MCH 28.9 pg (26.0-30.0) 07/12/18 16: MCHC Differential 32.9 pg (28.0-36.0) 07/12/18 16:26 RDW 14.4 % (11.5-20.0) 07/12/18 16:26 Plt Count 245 Th/cmm (150-400) 07/12/18 16:26 MPV 8.8 fl 07/12/18 16:26 Neutrophils % 63.0 % (40.0-80.0) 07/12/18 16:26 Lymphocytes % 15.4 % (20.0-50.0) L 07/12/18 16:26 Monocytes % 4.8 % (2.0-10.0) 07/12/18 16:26 Eosinophils % 16.8 % (0.0-5.0) H 07/12/18 16: Basophils % 0.0 % (0.0-2.0) 07/12/18 16:26 Neutrophils (Manual) Not Reportable 07/12/18 16: Lymphocytes 0 % (20-50) L 07/12/18 16:26 Sodium 140 mEq/L (136-145) 07/12/18 16:26 Potassium 3.5 mEq/L (3.5-5.1) 07/12/18 16:26 Chloride 107 mEq/L (98-107) 07/12/18 16:26 Carbon Dioxide 24.3 mEq/L (21.0-31.0) 07/12/18 16:26 Anion Gap 12.2 (7.0-16.0) 07/12/18 16:26 BUN 10 mg/dL (7-25) 07/12/18 16:26 Creatinine 0.9 mg/dL (0.7-1.3) 07/12/18 16:26 Est GFR ( Amer) > 60.0 ml/min (>90) 07/12/18 16:26 Est GFR (Non-Af Amer) > 60.0 ml/min 07/12/18 16:26 BUN/Creatinine Ratio 11.1 07/12/18 16:26 Glucose 105 mg/dL (70-105) 07/12/18 16:26 Calcium 9.9 mg/dL (8.6-10.3) 07/12/18 16:26 Phosphorus 2.4 mg/dL (2.5-5.0) L 07/12/18 16:26 Magnesium 2.3 mg/dL (1.9-2.7) 07/12/18 16:26 Total Bilirubin 1.0 mg/dL (0.3-1.0) 07/12/18 16:26 AST 24 U/L (13-39) 07/12/18 16:26 ALT 12 U/L (7-52) 07/12/18 16:26 Alkaline Phosphatase 88 U/L (34-104) 07/12/18 16:26 Total Protein 7.2 gm/dL (6.0-8.3) 07/12/18 16:26 Albumin 4.1 gm/dL (4.2-5.5) L 07/12/18 16:26 Globulin 3.1 gm/dL 07/12/18 16:26 Albumin/Globulin Ratio 1.3 (1.0-1.8) 07/12/18 16:26 - Physical Exam Vitals and I&O: Vital Signs Temp 97.2 F 07/19/18 22:32 Pulse 75 07/19/18 22:32 Resp 20 07/23/18 20:00 BP 135/75 07/19/18 22:32 Pulse Ox 96 07/19/18 22:32 Intake & Output 07/23/18 07/24/18 07/24/18 18:59 06:59 18:59 Intake Total 1250 Balance 1250 Weight (lbs) 66.224 kg 65.771 kg Intake: Oral 1250 Other: # Voids 4 3 # Bowel Movements 1 Weight Source Bedscale Bedscale Active Medications: Current Medications Hydrocortisone (Hydrocortisone 1%) 1 appl TP BID [facility] Stop: 09/12/18 19:29 Last Admin: 07/24/18 10:45 Dose: Not Given Dextrose/Sodium Chloride (D5-0.45ns) 1,000 mls @ 75 mls/hr IV .[id number] [facility] Stop: 09/10/18 23:53 Last Admin: 07/15/18 05:22 Dose: Not Given Losartan Potassium (Cozaar) 25 mg PO DAILY [facility] Stop: 09/11/18 09:59 Last Admin: 07/24/18 10:45 Dose: Not Given Risperidone (Risperdal) 0.5 mg PO BID [facility]; Protocol Stop: 09/14/18 16:59 Last Admin: 07/24/18 10:45 Dose: Not Given General: Alert, No acute distress HEENT: Atraumatic Neck: Supple, JVD Cardiovascular: Regular rate, Normal S1, Normal S2 Lungs: Clear to auscultation Abdomen: Bowel sounds, Soft Assessment/Plan - Problem List Patient Problems: All Active Problems Dehydration (Acute) E86.0 Failure to thrive (Acute) [id number] H/O: CVA (cerebrovascular accident) (Acute) Z86.73 - Plan Plan: as per order sheet Nutritional Asmnt/Malnutr-PDOC - Dietary Evaluation Malnutrition Findings (Please click <Entered> for more info): Nutritional Asmnt/Malnutrition Start: 07/13/18 12: 45 Text: Status: Complete Freq: Protocol: Document 07/13/18 12:46 FRANK (Rec: 07/13/18 12:53 FRANK HOGAN- [email or web address]) Nutritional Asmnt/Malnutrition Patient General Information Diagnosis F T T, dehydration Pertinent Medical Hx/Surgical Hx CVA/TIA Subjective Information Pt sitting up in bed, shook head "no" when asked if he had an appetite, then shrugged his sholders when asked why did he not have an appetite. Current Diet Order/ Nutrition Support pureed Pertinent Medications D5 1/2NS @75ml/hr (1.8L/day, 306kcals/day) Pertinent Labs 07/12: Na 140, K 3.5, Cl 107, CO2 24.3, BUN 10, Ca 0.9, Ca 9 .9, glucose 105, Phos 2.4, Mg 2.3 Nutritional Hx/Data Height 1.88 m Height (Calculated Centimeters) 188.0 Current Weight (lbs) 63.503 kg Weight (Calculated Kilograms) 63.5 Weight (Calculated Grams) 08418.9 Body Mass Index (BMI) 17.9 Weight Status Underweight GI Symptoms GI Symptoms None Last BM 07/13 Cultural/Ethnic/Advent Belief unknown Usual diet at home pureed Skin Integrity/Comment: anayeli score 17, intact Current %PO Negligible < 25% Estimated Nutritional Goals BEE in Kcals: Using Current wt Calories/Kcals/Kg 30+kcals/kg Kcals Calculated 1920+kcals/day Protein: Using Current wt Protein g/k.2+g/kg Protein Calculated 77+g/day Fluid: ml ~1920ml/day (~1ml/kcal) Nutritional Problem 1. Problem Problem Poor PO intake related to Etiology decreased appetite Signs/Symptoms: as evidenced by PO 0%. Intervention/Recommendation Comments Recommend continuing regular diet with texture per GRAPHIC DESIGNER. Consider appeitite stimulant to help with PO intake Recommend Boost Plus BID to help meet estimated needs. Expected Outcomes/Goals Expected Outcomes/Goals PO intake >75% of meals
--- NOTE | 2018-07-25 09:44 | General Progress Note ---
Subjective - Review of Systems Events since last encounter: awake alert in no distress Objective - Results Result Diagrams: 07/12/18 16:26 07/12/18 16:26 Recent Labs: Laboratory Last Values WBC 10.7 Th/cmm (4.8-10.8) 07/12/18 16:26 RBC 4.77 Mil/cmm (4.30-5.70) 07/12/18 16:26 Hgb 13.8 gm/dL (12-16) 07/12/18 16:26 Hct 41.9 % (41.0-60) 07/12/18 16:26 MCV 87.9 fl (80-99) 07/12/18 16:26 MCH 28.9 pg (26.0-30.0) 07/12/18 16:26 MCHC Differential 32.9 pg (28.0-36.0) 07/12/18 16:26 RDW 14.4 % (11.5-20.0) 07/12/18 16:26 Plt Count 245 Th/cmm (150-400) 07/12/18 16:26 MPV 8.8 fl 07/12/18 16:26 Neutrophils % 63.0 % (40.0-80.0) 07/12/18 16:26 Lymphocytes % 15.4 % (20.0-50.0) L 07/12/18 16:26 Monocytes % 4.8 % (2.0-10.0) 07/12/18 16:26 Eosinophils % 16.8 % (0.0-5.0) H 07/12/18 16:26 Basophils % 0.0 % (0.0-2.0) 07/12/18 16:26 Neutrophils (Manual) Not Reportable 07/12/18 16:26 Lymphocytes 0 % (20-50) L 07/12/18 16:26 Sodium 140 mEq/L (136-145) 07/12/18 16:26 Potassium 3.5 mEq/L (3.5-5.1) 07/12/18 16:26 Chloride 107 mEq/L (98-107) 07/12/18 16:26 Carbon Dioxide 24.3 mEq/L (21.0-31.0) 07/12/18 16:26 Anion Gap 12.2 (7.0-16.0) 07/12/18 16:26 BUN 10 mg/dL (7-25) 07/12/18 16:26 Creatinine 0.9 mg/dL (0.7-1.3) 07/12/18 16:26 Est GFR ( Amer) > 60.0 ml/min (>90) 07/12/18 16:26 Est GFR (Non-Af Amer) > 60.0 ml/min 07/12/18 16:26 BUN/Creatinine Ratio 11.1 07/12/18 16:26 Glucose 105 mg/dL (70-105) 07/12/18 16:26 Calcium 9.9 mg/dL (8.6-10.3) 07/12/18 16:26 Phosphorus 2.4 mg/dL (2.5-5.0) L 07/12/18 16:26 Magnesium 2.3 mg/dL (1.9-2.7) 07/12/18 16:26 Total Bilirubin 1.0 mg/dL (0.3-1.0) 07/12/18 16:26 AST 24 U/L (13-39) 07/12/18 16:26 ALT 12 U/L (7-52) 07/12/18 16:26 Alkaline Phosphatase 88 U/L (34-104) 07/12/18 16:26 Total Protein 7.2 gm/dL (6.0-8.3) 07/12/18 16:26 Albumin 4.1 gm/dL (4.2-5.5) L 07/12/18 16:26 Globulin 3.1 gm/dL 07/12/18 16:26 Albumin/Globulin Ratio 1.3 (1.0-1.8) 07/12/18 16:26 - Physical Exam Vitals and I&O: Vital Signs Temp 97.2 F 07/19/18 22:32 Pulse 75 07/19/18 22:32 Resp 20 07/23/18 20:00 BP 135/75 07/19/18 22:32 Pulse Ox 96 07/19/18 22:32 Intake & Output 07/24/18 07/25/18 07/25/18 18:59 06:59 18:59 Intake Total 1800 240 Balance 1800 240 Weight (lbs) 65.771 kg 65.771 kg Intake: Oral 1800 240 Other: # Voids 3 2 # Bowel Movements 0 Weight Source Bedscale Bedscale Active Medications: Current Medications Hydrocortisone (Hydrocortisone 1%) 1 appl TP BID [facility] Stop: 09/12/18 19:29 Last Admin: 07/24/18 16:08 Dose: Not Given Dextrose/Sodium Chloride (D5-0.45ns) 1,000 mls @ 75 mls/hr IV .[id number] [facility]ER Stop: 09/10/18 23:53 Last Admin: 07/15/18 05:22 Dose: Not Given Losartan Potassium (Cozaar) 25 mg PO DAILY [facility] Stop: 09/11/18 09:59 Last Admin: 07/24/18 10:45 Dose: Not Given Risperidone (Risperdal) 0.5 mg PO BID [facility]; Protocol Stop: 09/14/18 16:59 Last Admin: 07/24/18 16:08 Dose: Not Given General: Alert, No acute distress HEENT: Atraumatic Neck: Supple, JVD Cardiovascular: Regular rate, Normal S1, Normal S2 Lungs: Clear to auscultation Abdomen: Bowel sounds, Soft Assessment/Plan - Problem List Patient Problems: All Active Problems Dehydration (Acute) E86.0 Failure to thrive (Acute) [id number] H/O: CVA (cerebrovascular accident) (Acute) Z86.73 - Plan Plan: as per order sheet Nutritional Asmnt/Malnutr-PDOC - Dietary Evaluation Malnutrition Findings (Please click <Entered> for more info): Nutritional Asmnt/Malnutrition Start: 07/13/18 12: 45 Text: Status: Complete Freq: Protocol: Document 07/13/18 12:46 FRANK (Rec: 07/13/18 12:53 FRANK HOGAN- [email or web address]) Nutritional Asmnt/Malnutrition Patient General Information Diagnosis F T T, dehydration Pertinent Medical Hx/Surgical Hx CVA/TIA Subjective Information Pt sitting up in bed, shook head "no" when asked if he had an appetite, then shrugged his sholders when asked why did he not have an appetite. Current Diet Order/ Nutrition Support pureed Pertinent Medications D5 1/2NS @75ml/hr (1.8L/day, 306kcals/day) Pertinent Labs 07/12: Na 140, K 3.5, Cl 107, CO2 24.3, BUN 10, Ca 0.9, Ca 9 .9, glucose 105, Phos 2.4, Mg 2.3 Nutritional Hx/Data Height 1.88 m Height (Calculated Centimeters) 188.0 Current Weight (lbs) 63.503 kg Weight (Calculated Kilograms) 63.5 Weight (Calculated Grams) 50244.9 Body Mass Index (BMI) 17.9 Weight Status Underweight GI Symptoms GI Symptoms None Last BM 07/13 Cultural/Ethnic/Scientologist Belief unknown Usual diet at home pureed Skin Integrity/Comment: anayeli score 17, intact Current %PO Negligible < 25% Estimated Nutritional Goals BEE in Kcals: Using Current wt Calories/Kcals/Kg 30+kcals/kg Kcals Calculated 1920+kcals/day Protein: Using Current wt Protein g/k.2+g/kg Protein Calculated 77+g/day Fluid: ml ~1920ml/day (~1ml/kcal) Nutritional Problem 1. Problem Problem Poor PO intake related to Etiology decreased appetite Signs/Symptoms: as evidenced by PO 0%. Intervention/Recommendation Comments Recommend continuing regular diet with texture per FOUR ROLL CALENDER OPERATOR. Consider appeitite stimulant to help with PO intake Recommend Boost Plus BID to help meet estimated needs. Expected Outcomes/Goals Expected Outcomes/Goals PO intake >75% of meals
--- NOTE | 2018-07-26 16:52 | Progress Notes ---
DATE: 07/26/2018 SUBJECTIVE: Staring blankly, awake, alert. No disturbances. No evidence of psychosis. No agitation, selectively mute, status post a stroke, very flat affect, and minimally if at all interactive, sleeping well, eating on his own volition, seems to be getting along fairly well with staff and peers in regards to not causing any problems, not lashing out at staff, still refusing treatments. MENTAL STATUS EXAMINATION: Staring blankly, stated age, awake, alert. No suicidal gestures. No overt evidence of psychosis. DIAGNOSES: Unchanged. RECOMMENDATIONS AND PLAN: We will continue to monitor. Currently, we are watching out for any behavioral disturbances and we are currently pending placement. [facility]# [id number]
--- NOTE | 2018-07-26 21:14 | Internal Medicine Prog Note ---
Internal Medicine Subjective - Subjective Service Date: 07/26/18 Patient is:: awake Per staff patient has:: tolerating meds, refusing care Internal Medicine Objective - Results Result Diagrams: 07/12/18 16:26 07/12/18 16:26 Recent Labs: Laboratory Last Values WBC 10.7 Th/cmm (4.8-10.8) 07/12/18 16:26 RBC 4.77 Mil/cmm (4.30-5.70) 07/12/18 16:26 Hgb 13.8 gm/dL (12-16) 07/12/18 16:26 Hct 41.9 % (41.0-60) 07/12/18 16:26 MCV 87.9 fl (80-99) 07/12/18 16:26 MCH 28.9 pg (26.0-30.0) 07/12/18 16: MCHC Differential 32.9 pg (28.0-36.0) 07/12/18 16:26 RDW 14.4 % (11.5-20.0) 07/12/18 16:26 Plt Count 245 Th/cmm (150-400) 07/12/18 16:26 MPV 8.8 fl 07/12/18 16:26 Neutrophils % 63.0 % (40.0-80.0) 07/12/18 16:26 Lymphocytes % 15.4 % (20.0-50.0) L 07/12/18 16:26 Monocytes % 4.8 % (2.0-10.0) 07/12/18 16:26 Eosinophils % 16.8 % (0.0-5.0) H 07/12/18 16:26 Basophils % 0.0 % (0.0-2.0) 07/12/18 16:26 Neutrophils (Manual) Not Reportable 07/12/18 16:26 Lymphocytes 0 % (20-50) L 07/12/18 16:26 Sodium 140 mEq/L (136-145) 07/12/18 16:26 Potassium 3.5 mEq/L (3.5-5.1) 07/12/18 16:26 Chloride 107 mEq/L (98-107) 07/12/18 16:26 Carbon Dioxide 24.3 mEq/L (21.0-31.0) 07/12/18 16:26 Anion Gap 12.2 (7.0-16.0) 07/12/18 16:26 BUN 10 mg/dL (7-25) 07/12/18 16:26 Creatinine 0.9 mg/dL (0.7-1.3) 07/12/18 16:26 Est GFR ( Amer) > 60.0 ml/min (>90) 07/12/18 16:26 Est GFR (Non-Af Amer) > 60.0 ml/min 07/12/18 16:26 BUN/Creatinine Ratio 11.1 07/12/18 16:26 Glucose 105 mg/dL (70-105) 07/12/18 16:26 Calcium 9.9 mg/dL (8.6-10.3) 07/12/18 16:26 Phosphorus 2.4 mg/dL (2.5-5.0) L 07/12/18 16:26 Magnesium 2.3 mg/dL (1.9-2.7) 07/12/18 16:26 Total Bilirubin 1.0 mg/dL (0.3-1.0) 07/12/18 16:26 AST 24 U/L (13-39) 07/12/18 16:26 ALT 12 U/L (7-52) 07/12/18 16:26 Alkaline Phosphatase 88 U/L (34-104) 07/12/18 16:26 Total Protein 7.2 gm/dL (6.0-8.3) 07/12/18 16:26 Albumin 4.1 gm/dL (4.2-5.5) L 07/12/18 16:26 Globulin 3.1 gm/dL 07/12/18 16:26 Albumin/Globulin Ratio 1.3 (1.0-1.8) 07/12/18 16:26 - Physical Exam Vitals and I&O: Vital Signs Temp 97.2 F 07/19/18 22:32 Pulse 75 07/19/18 22:32 Resp 18 07/26/18 09:50 BP 135/75 07/19/18 22:32 Pulse Ox 96 07/19/18 22:32 Intake & Output 07/26/18 07/26/18 07/27/18 06:59 18:59 06:59 Intake Total 500 750 Balance 500 750 Weight (lbs) 145 lb 145 lb Intake: Oral 500 750 Other: # Voids 3 3 Weight Source Bedscale Bedscale Active Medications: Current Medications Hydrocortisone (Hydrocortisone 1%) 1 appl TP BID [facility] Stop: 09/12/18 19:29 Last Admin: 07/26/18 17:12 Dose: Not Given Dextrose/Sodium Chloride (D5-0.45ns) 1,000 mls @ 75 mls/hr IV .[id number] [facility] Stop: 09/10/18 23:53 Last Admin: 07/15/18 05:22 Dose: Not Given Losartan Potassium (Cozaar) 25 mg PO DAILY [facility] Stop: 09/11/18 09:59 Last Admin: 07/26/18 09:46 Dose: Not Given Risperidone (Risperdal) 0.5 mg PO BID [facility]; Protocol Stop: 09/14/18 16:59 Last Admin: 07/26/18 17:12 Dose: Not Given General: weak, alert HEENT: NC/AT, PERRLA Neck: Supple Lungs: CTAB Cardiovascular: RRR, Normal S1, Normal S2 Extremities: excoriation, rash Neurological: alert Internal Medicine Assmt/Plan - Assessment Assessment: Dehydration (Acute) E86.0 Failure to thrive (Acute) [id number] H/O: CVA (cerebrovascular accident) (Acute) Z86.73 - Plan Plan: psych follow up continue current plan of care Nutritional Asmnt/Malnutr-PDOC - Dietary Evaluation Malnutrition Findings (Please click <Entered> for more info): Nutritional Asmnt/Malnutrition Start: 07/13/18 12: 45 Text: Status: Complete Freq: Protocol: Document 07/13/18 12:46 FRANK (Rec: 07/13/18 12:53 FRANK HOGAN- FNS1) Nutritional Asmnt/Malnutrition Patient General Information Diagnosis F T T, dehydration Pertinent Medical Hx/Surgical Hx CVA/TIA Subjective Information Pt sitting up in bed, shook head "no" when asked if he had an appetite, then shrugged his sholders when asked why did he not have an appetite. Current Diet Order/ Nutrition Support pureed Pertinent Medications D5 1/2NS @75ml/hr (1.8L/day, 306kcals/day) Pertinent Labs 07/12: Na 140, K 3.5, Cl 107, CO2 24.3, BUN 10, Ca 0.9, Ca 9 .9, glucose 105, Phos 2.4, Mg 2.3 Nutritional Hx/Data Height 6 ft 2 in Height (Calculated Centimeters) 188.0 Current Weight (lbs) 140 lb Weight (Calculated Kilograms) 63.5 Weight (Calculated Grams) 42309.9 Body Mass Index (BMI) 17.9 Weight Status Underweight GI Symptoms GI Symptoms None Last BM 07/13 Cultural/Ethnic/Mandaen Belief unknown Usual diet at home pureed Skin Integrity/Comment: anayeli score 17, intact Current %PO Negligible < 25% Estimated Nutritional Goals BEE in Kcals: Using Current wt Calories/Kcals/Kg 30+kcals/kg Kcals Calculated 1920+kcals/day Protein: Using Current wt Protein g/k.2+g/kg Protein Calculated 77+g/day Fluid: ml ~1920ml/day (~1ml/kcal) Nutritional Problem 1. Problem Problem Poor PO intake related to Etiology decreased appetite Signs/Symptoms: as evidenced by PO 0%. Intervention/Recommendation Comments Recommend continuing regular diet with texture per PUNCH MACHINE OPERATOR. Consider appeitite stimulant to help with PO intake Recommend Boost Plus BID to help meet estimated needs. Expected Outcomes/Goals Expected Outcomes/Goals PO intake >75% of meals
--- NOTE | 2018-07-27 00:16 | Progress Notes ---
DATE: 07/25/2018 SUBJECTIVE: A 52-year-old male continues to stare blankly, seems to be a stroke system. Flat affect, selectively mute, but no behaviors, no agitation, going to the bathroom. Eating on his own volition. No disturbances. No evidence of any acute psychotic symptoms such as psychotic agitation. No overt paranoias. MENTAL STATUS EXAMINATION: In bed, resting comfortably, awake, alert, says nothing. Mood not answering. Affect flat. Thought processes are to assess. No suicidal gestures. He is not currently responding to internal stimuli, not currently paranoid appearing. PROVISIONAL DIAGNOSES: History of stroke; psychosis, unspecified; concerns for schizophrenia, but details unclear. No plan. ASSESSMENT: The patient is not creating any disturbances, no behavioral disturbances. We will continue to monitor, the patient currently awaiting placement. JOB# [id number]
--- NOTE | 2018-07-27 19:43 | Progress Notes ---
DATE: 07/27/2018 SUBJECTIVE: The patient was seen in his room, staring blank, awake and alert, but according to nurses, the patient has still been refusing care. Otherwise, the patient appears to be in no acute distress. OBJECTIVE: VITAL SIGNS: The patient refused vital signs to be checked. HEENT: Head is atraumatic and normocephalic. Eyes: Bilateral conjunctivae are clear. Bilateral pupils are equally round and reactive. NECK: Supple. No JVD. CARDIOVASCULAR: S1 and S2, without murmur. PULMONARY: Clear to auscultation. GASTROINTESTINAL: Soft and nontender without guarding. Positive bowel sounds. MUSCULOSKELETAL: No clubbing. No cyanosis noted. ASSESSMENT: 1. Mood disorder. 2. History of cerebrovascular accident. PLAN: We will keep the patient inpatient. We will follow up with a psychiatrist to monitor the patient's condition and behavior. Treatment plans were discussed with the patient's nurse. Treatment plans were discussed with Dr. Guzman. JOB# [id number]
--- NOTE | 2018-07-28 12:21 | General Progress Note ---
Subjective - Review of Systems Events since last encounter: in no distress as per staff refusing care Objective - Results Result Diagrams: 07/12/18 16:26 07/12/18 16:26 Recent Labs: Laboratory Last Values WBC 10.7 Th/cmm (4.8-10.8) 07/12/18 16:26 RBC 4.77 Mil/cmm (4.30-5.70) 07/12/18 16:26 Hgb 13.8 gm/dL (12-16) 07/12/18 16:26 Hct 41.9 % (41.0-60) 07/12/18 16:26 MCV 87.9 fl (80-99) 07/12/18 16:26 MCH 28.9 pg (26.0-30.0) 07/12/18 16: MCHC Differential 32.9 pg (28.0-36.0) 07/12/18 16:26 RDW 14.4 % (11.5-20.0) 07/12/18 16:26 Plt Count 245 Th/cmm (150-400) 07/12/18 16:26 MPV 8.8 fl 07/12/18 16:26 Neutrophils % 63.0 % (40.0-80.0) 07/12/18 16: Lymphocytes % 15.4 % (20.0-50.0) L 07/12/18 16:26 Monocytes % 4.8 % (2.0-10.0) 07/12/18 16:26 Eosinophils % 16.8 % (0.0-5.0) H 07/12/18 16: Basophils % 0.0 % (0.0-2.0) 07/12/18 16:26 Neutrophils (Manual) Not Reportable 07/12/18 16: Lymphocytes 0 % (20-50) L 07/12/18 16:26 Sodium 140 mEq/L (136-145) 07/12/18 16:26 Potassium 3.5 mEq/L (3.5-5.1) 07/12/18 16:26 Chloride 107 mEq/L (98-107) 07/12/18 16:26 Carbon Dioxide 24.3 mEq/L (21.0-31.0) 07/12/18 16:26 Anion Gap 12.2 (7.0-16.0) 07/12/18 16:26 BUN 10 mg/dL (7-25) 07/12/18 16:26 Creatinine 0.9 mg/dL (0.7-1.3) 07/12/18 16:26 Est GFR ( Amer) > 60.0 ml/min (>90) 07/12/18 16:26 Est GFR (Non-Af Amer) > 60.0 ml/min 07/12/18 16:26 BUN/Creatinine Ratio 11.1 07/12/18 16:26 Glucose 105 mg/dL (70-105) 07/12/18 16:26 Calcium 9.9 mg/dL (8.6-10.3) 07/12/18 16:26 Phosphorus 2.4 mg/dL (2.5-5.0) L 07/12/18 16:26 Magnesium 2.3 mg/dL (1.9-2.7) 07/12/18 16:26 Total Bilirubin 1.0 mg/dL (0.3-1.0) 07/12/18 16:26 AST 24 U/L (13-39) 07/12/18 16:26 ALT 12 U/L (7-52) 07/12/18 16:26 Alkaline Phosphatase 88 U/L (34-104) 07/12/18 16:26 Total Protein 7.2 gm/dL (6.0-8.3) 07/12/18 16:26 Albumin 4.1 gm/dL (4.2-5.5) L 07/12/18 16:26 Globulin 3.1 gm/dL 07/12/18 16:26 Albumin/Globulin Ratio 1.3 (1.0-1.8) 07/12/18 16:26 - Physical Exam Vitals and I&O: Vital Signs Temp 97.2 F 07/19/18 22:32 Pulse 75 07/19/18 22:32 Resp 18 07/28/18 08:00 BP 135/75 07/19/18 22:32 Pulse Ox 96 07/19/18 22:32 Intake & Output 07/27/18 07/28/18 07/28/18 18:59 06:59 18:59 Intake Total 600 500 Balance 600 500 Weight (lbs) 65.771 kg 65.771 kg 65.771 kg Intake: Oral 600 500 Other: # Voids 3 2 Weight Source Bedscale Bedscale Bedscale Active Medications: Current Medications Hydrocortisone (Hydrocortisone 1%) 1 appl TP BID [facility] Stop: 09/12/18 19:29 Last Admin: 07/28/18 09:00 Dose: Not Given Dextrose/Sodium Chloride (D5-0.45ns) 1,000 mls @ 75 mls/hr IV .[id number] [facility] Stop: 09/10/18 23:53 Last Admin: 07/15/18 05:22 Dose: Not Given Losartan Potassium (Cozaar) 25 mg PO DAILY [facility] Stop: 09/11/18 09:59 Last Admin: 07/28/18 09:00 Dose: Not Given Risperidone (Risperdal) 0.5 mg PO BID [facility]; Protocol Stop: 09/14/18 16:59 Last Admin: 07/28/18 09:00 Dose: Not Given General: Alert, No acute distress HEENT: Atraumatic Neck: Supple, JVD Cardiovascular: Regular rate, Normal S1, Normal S2 Lungs: Clear to auscultation Abdomen: Bowel sounds, Soft Assessment/Plan - Problem List Patient Problems: All Active Problems Dehydration (Acute) E86.0 Failure to thrive (Acute) [id number] H/O: CVA (cerebrovascular accident) (Acute) Z86.73 Mood disorder (Acute) F39 - Plan Plan: as per order sheet Nutritional Asmnt/Malnutr-PDOC - Dietary Evaluation Malnutrition Findings (Please click <Entered> for more info): Nutritional Asmnt/Malnutrition Start: 07/13/18 12: 45 Text: Status: Complete Freq: Protocol: Document 07/13/18 12:46 FRANK (Rec: 07/13/18 12:53 FRANK HOGAN- [email or web address]) Nutritional Asmnt/Malnutrition Patient General Information Diagnosis F T T, dehydration Pertinent Medical Hx/Surgical Hx CVA/TIA Subjective Information Pt sitting up in bed, shook head "no" when asked if he had an appetite, then shrugged his sholders when asked why did he not have an appetite. Current Diet Order/ Nutrition Support pureed Pertinent Medications D5 1/2NS @75ml/hr (1.8L/day, 306kcals/day) Pertinent Labs 07/12: Na 140, K 3.5, Cl 107, CO2 24.3, BUN 10, Ca 0.9, Ca 9 .9, glucose 105, Phos 2.4, Mg 2.3 Nutritional Hx/Data Height 1.88 m Height (Calculated Centimeters) 188.0 Current Weight (lbs) 63.503 kg Weight (Calculated Kilograms) 63.5 Weight (Calculated Grams) 60835.9 Body Mass Index (BMI) 17.9 Weight Status Underweight GI Symptoms GI Symptoms None Last BM 07/13 Cultural/Ethnic/Muslim Belief unknown Usual diet at home pureed Skin Integrity/Comment: anayeli score 17, intact Current %PO Negligible < 25% Estimated Nutritional Goals BEE in Kcals: Using Current wt Calories/Kcals/Kg 30+kcals/kg Kcals Calculated 1920+kcals/day Protein: Using Current wt Protein g/k.2+g/kg Protein Calculated 77+g/day Fluid: ml ~1920ml/day (~1ml/kcal) Nutritional Problem 1. Problem Problem Poor PO intake related to Etiology decreased appetite Signs/Symptoms: as evidenced by PO 0%. 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 Consider appeitite stimulant to help with PO intake Recommend Boost Plus BID to help meet estimated needs. Expected Outcomes/Goals Expected Outcomes/Goals PO intake >75% of meals
--- NOTE | 2018-07-29 15:55 | General Progress Note ---
Subjective - Review of Systems Events since last encounter: in no distress Objective - Results Result Diagrams: 07/12/18 16:26 07/12/18 16:26 Recent Labs: Laboratory Last Values WBC 10.7 Th/cmm (4.8-10.8) 07/12/18 16:26 RBC 4.77 Mil/cmm (4.30-5.70) 07/12/18 16:26 Hgb 13.8 gm/dL (12-16) 07/12/18 16:26 Hct 41.9 % (41.0-60) 07/12/18 16:26 MCV 87.9 fl (80-99) 07/12/18 16:26 MCH 28.9 pg (26.0-30.0) 07/12/18 16:26 MCHC Differential 32.9 pg (28.0-36.0) 07/12/18 16:26 RDW 14.4 % (11.5-20.0) 07/12/18 16:26 Plt Count 245 Th/cmm (150-400) 07/12/18 16:26 MPV 8.8 fl 07/12/18 16:26 Neutrophils % 63.0 % (40.0-80.0) 07/12/18 16:26 Lymphocytes % 15.4 % (20.0-50.0) L 07/12/18 16:26 Monocytes % 4.8 % (2.0-10.0) 07/12/18 16:26 Eosinophils % 16.8 % (0.0-5.0) H 07/12/18 16:26 Basophils % 0.0 % (0.0-2.0) 07/12/18 16:26 Neutrophils (Manual) Not Reportable 07/12/18 16:26 Lymphocytes 0 % (20-50) L 07/12/18 16:26 Sodium 140 mEq/L (136-145) 07/12/18 16:26 Potassium 3.5 mEq/L (3.5-5.1) 07/12/18 16:26 Chloride 107 mEq/L (98-107) 07/12/18 16:26 Carbon Dioxide 24.3 mEq/L (21.0-31.0) 07/12/18 16:26 Anion Gap 12.2 (7.0-16.0) 07/12/18 16:26 BUN 10 mg/dL (7-25) 07/12/18 16:26 Creatinine 0.9 mg/dL (0.7-1.3) 07/12/18 16:26 Est GFR ( Amer) > 60.0 ml/min (>90) 07/12/18 16:26 Est GFR (Non-Af Amer) > 60.0 ml/min 07/12/18 16:26 BUN/Creatinine Ratio 11.1 07/12/18 16:26 Glucose 105 mg/dL (70-105) 07/12/18 16:26 Calcium 9.9 mg/dL (8.6-10.3) 07/12/18 16:26 Phosphorus 2.4 mg/dL (2.5-5.0) L 07/12/18 16:26 Magnesium 2.3 mg/dL (1.9-2.7) 07/12/18 16:26 Total Bilirubin 1.0 mg/dL (0.3-1.0) 07/12/18 16:26 AST 24 U/L (13-39) 07/12/18 16:26 ALT 12 U/L (7-52) 07/12/18 16:26 Alkaline Phosphatase 88 U/L (34-104) 07/12/18 16:26 Total Protein 7.2 gm/dL (6.0-8.3) 07/12/18 16:26 Albumin 4.1 gm/dL (4.2-5.5) L 07/12/18 16:26 Globulin 3.1 gm/dL 07/12/18 16:26 Albumin/Globulin Ratio 1.3 (1.0-1.8) 07/12/18 16:26 - Physical Exam Vitals and I&O: Vital Signs Temp 97.2 F 07/19/18 22:32 Pulse 75 07/19/18 22:32 Resp 18 07/29/18 08:25 BP 135/75 07/19/18 22:32 Pulse Ox 96 07/19/18 22:32 Intake & Output 07/28/18 07/29/18 07/29/18 18:59 06:59 18:59 Intake Total 300 Balance 300 Weight (lbs) 65.771 kg 65.771 kg Intake: Oral 300 Other: # Voids 3 # Bowel Movements 0 Weight Source Bedscale Bedscale Active Medications: Current Medications Hydrocortisone (Hydrocortisone 1%) 1 appl TP BID [facility] Stop: 09/12/18 19:29 Last Admin: 07/29/18 09:26 Dose: Not Given Dextrose/Sodium Chloride (D5-0.45ns) 1,000 mls @ 75 mls/hr IV .[id number] [facility] Stop: 09/10/18 23:53 Last Admin: 07/15/18 05:22 Dose: Not Given Losartan Potassium (Cozaar) 25 mg PO DAILY [facility] Stop: 09/11/18 09:59 Last Admin: 07/29/18 09:26 Dose: Not Given Risperidone (Risperdal) 0.5 mg PO BID [facility]; Protocol Stop: 09/14/18 16:59 Last Admin: 07/29/18 09:27 Dose: Not Given General: Alert, No acute distress HEENT: Atraumatic Neck: Supple, JVD Cardiovascular: Regular rate, Normal S1, Normal S2 Lungs: Clear to auscultation Abdomen: Bowel sounds, Soft Assessment/Plan - Problem List Patient Problems: All Active Problems Dehydration (Acute) E86.0 Failure to thrive (Acute) [id number] H/O: CVA (cerebrovascular accident) (Acute) Z86.73 Mood disorder (Acute) F39 - Plan Plan: as per order sheet Nutritional Asmnt/Malnutr-PDOC - Dietary Evaluation Malnutrition Findings (Please click <Entered> for more info): Nutritional Asmnt/Malnutrition Start: 07/13/18 12: 45 Text: Status: Complete Freq: Protocol: Document 07/13/18 12:46 FRANK (Rec: 07/13/18 12:53 FRANK HOGAN- [email or web address]) Nutritional Asmnt/Malnutrition Patient General Information Diagnosis F T T, dehydration Pertinent Medical Hx/Surgical Hx CVA/TIA Subjective Information Pt sitting up in bed, shook head "no" when asked if he had an appetite, then shrugged his sholders when asked why did he not have an appetite. Current Diet Order/ Nutrition Support pureed Pertinent Medications D5 1/2NS @75ml/hr (1.8L/day, 306kcals/day) Pertinent Labs 07/12: Na 140, K 3.5, Cl 107, CO2 24.3, BUN 10, Ca 0.9, Ca 9 .9, glucose 105, Phos 2.4, Mg 2.3 Nutritional Hx/Data Height 1.88 m Height (Calculated Centimeters) 188.0 Current Weight (lbs) 63.503 kg Weight (Calculated Kilograms) 63.5 Weight (Calculated Grams) 84251.9 Body Mass Index (BMI) 17.9 Weight Status Underweight GI Symptoms GI Symptoms None Last BM 07/13 Cultural/Ethnic/Yarsani Belief unknown Usual diet at home pureed Skin Integrity/Comment: anayeli score 17, intact Current %PO Negligible < 25% Estimated Nutritional Goals BEE in Kcals: Using Current wt Calories/Kcals/Kg 30+kcals/kg Kcals Calculated 1920+kcals/day Protein: Using Current wt Protein g/k.2+g/kg Protein Calculated 77+g/day Fluid: ml ~1920ml/day (~1ml/kcal) Nutritional Problem 1. Problem Problem Poor PO intake related to Etiology decreased appetite Signs/Symptoms: as evidenced by PO 0%. Intervention/Recommendation Comments Recommend continuing regular diet with texture per SHAREHOLDER. Consider appeitite stimulant to help with PO intake Recommend Boost Plus BID to help meet estimated needs. Expected Outcomes/Goals Expected Outcomes/Goals PO intake >75% of meals
--- NOTE | 2018-07-30 13:21 | Internal Medicine Prog Note ---
Internal Medicine Subjective - Subjective Service Date: 07/30/18 Patient is:: awake Per staff patient has:: tolerating meds, refusing care Internal Medicine Objective - Results Result Diagrams: 07/12/18 16:26 07/12/18 16:26 Recent Labs: Laboratory Last Values WBC 10.7 Th/cmm (4.8-10.8) 07/12/18 16:26 RBC 4.77 Mil/cmm (4.30-5.70) 07/12/18 16:26 Hgb 13.8 gm/dL (12-16) 07/12/18 16:26 Hct 41.9 % (41.0-60) 07/12/18 16:26 MCV 87.9 fl (80-99) 07/12/18 16:26 MCH 28.9 pg (26.0-30.0) 07/12/18 16: MCHC Differential 32.9 pg (28.0-36.0) 07/12/18 16:26 RDW 14.4 % (11.5-20.0) 07/12/18 16:26 Plt Count 245 Th/cmm (150-400) 07/12/18 16:26 MPV 8.8 fl 07/12/18 16:26 Neutrophils % 63.0 % (40.0-80.0) 07/12/18 16:26 Lymphocytes % 15.4 % (20.0-50.0) L 07/12/18 16:26 Monocytes % 4.8 % (2.0-10.0) 07/12/18 16:26 Eosinophils % 16.8 % (0.0-5.0) H 07/12/18 16:26 Basophils % 0.0 % (0.0-2.0) 07/12/18 16:26 Neutrophils (Manual) Not Reportable 07/12/18 16:26 Lymphocytes 0 % (20-50) L 07/12/18 16:26 Sodium 140 mEq/L (136-145) 07/12/18 16:26 Potassium 3.5 mEq/L (3.5-5.1) 07/12/18 16:26 Chloride 107 mEq/L (98-107) 07/12/18 16:26 Carbon Dioxide 24.3 mEq/L (21.0-31.0) 07/12/18 16:26 Anion Gap 12.2 (7.0-16.0) 07/12/18 16:26 BUN 10 mg/dL (7-25) 07/12/18 16:26 Creatinine 0.9 mg/dL (0.7-1.3) 07/12/18 16:26 Est GFR ( Amer) > 60.0 ml/min (>90) 07/12/18 16:26 Est GFR (Non-Af Amer) > 60.0 ml/min 07/12/18 16:26 BUN/Creatinine Ratio 11.1 07/12/18 16:26 Glucose 105 mg/dL (70-105) 07/12/18 16:26 Calcium 9.9 mg/dL (8.6-10.3) 07/12/18 16:26 Phosphorus 2.4 mg/dL (2.5-5.0) L 07/12/18 16:26 Magnesium 2.3 mg/dL (1.9-2.7) 07/12/18 16:26 Total Bilirubin 1.0 mg/dL (0.3-1.0) 07/12/18 16:26 AST 24 U/L (13-39) 07/12/18 16:26 ALT 12 U/L (7-52) 07/12/18 16:26 Alkaline Phosphatase 88 U/L (34-104) 07/12/18 16:26 Total Protein 7.2 gm/dL (6.0-8.3) 07/12/18 16:26 Albumin 4.1 gm/dL (4.2-5.5) L 07/12/18 16:26 Globulin 3.1 gm/dL 07/12/18 16:26 Albumin/Globulin Ratio 1.3 (1.0-1.8) 07/12/18 16:26 - Physical Exam Vitals and I&O: Vital Signs Temp 97.4 F 07/30/18 07:52 Pulse 69 07/30/18 07:52 Resp 15 07/30/18 08:57 BP 131/71 07/30/18 08:50 Pulse Ox 96 07/30/18 07:52 Intake & Output 07/29/18 07/30/18 07/30/18 18:59 06:59 18:59 Intake Total 550 Balance 550 Weight (lbs) 145 lb 145 lb Intake: Oral 550 Other: # Voids 3 2 # Bowel Movements 0 Weight Source Bedscale Bedscale Active Medications: Current Medications Hydrocortisone (Hydrocortisone 1%) 1 appl TP BID [facility] Stop: 09/12/18 19:29 Last Admin: 07/30/18 08:50 Dose: Not Given Dextrose/Sodium Chloride (D5-0.45ns) 1,000 mls @ 75 mls/hr IV .[id number] [facility] Stop: 09/10/18 23:53 Last Admin: 07/15/18 05:22 Dose: Not Given Losartan Potassium (Cozaar) 25 mg PO DAILY [facility] Stop: 09/11/18 09:59 Last Admin: 07/30/18 08:50 Dose: Not Given Risperidone (Risperdal) 0.5 mg PO BID [facility]; Protocol Stop: 09/14/18 16:59 Last Admin: 07/30/18 08:50 Dose: Not Given General: weak, alert HEENT: NC/AT, PERRLA Neck: Supple Lungs: CTAB Cardiovascular: RRR, Normal S1, Normal S2 Extremities: excoriation, rash Neurological: alert Internal Medicine Assmt/Plan - Assessment Assessment: Dehydration (Acute) E86.0 Failure to thrive (Acute) [id number] H/O: CVA (cerebrovascular accident) (Acute) Z86.73 - Plan Plan: psych follow up continue current plan of care Nutritional Asmnt/Malnutr-PDOC - Dietary Evaluation Malnutrition Findings (Please click <Entered> for more info): Nutritional Asmnt/Malnutrition Start: 07/13/18 12: 45 Text: Status: Complete Freq: Protocol: Document 07/13/18 12:46 FRANK (Rec: 07/13/18 12:53 FRANK HOGAN- [email or web address]) Nutritional Asmnt/Malnutrition Patient General Information Diagnosis F T T, dehydration Pertinent Medical Hx/Surgical Hx CVA/TIA Subjective Information Pt sitting up in bed, shook head "no" when asked if he had an appetite, then shrugged his sholders when asked why did he not have an appetite. Current Diet Order/ Nutrition Support pureed Pertinent Medications D5 1/2NS @75ml/hr (1.8L/day, 306kcals/day) Pertinent Labs 07/12: Na 140, K 3.5, Cl 107, CO2 24.3, BUN 10, Ca 0.9, Ca 9 .9, glucose 105, Phos 2.4, Mg 2.3 Nutritional Hx/Data Height 6 ft 2 in Height (Calculated Centimeters) 188.0 Current Weight (lbs) 140 lb Weight (Calculated Kilograms) 63.5 Weight (Calculated Grams) 04453.9 Body Mass Index (BMI) 17.9 Weight Status Underweight GI Symptoms GI Symptoms None Last BM 07/13 Cultural/Ethnic/Yazdanism Belief unknown Usual diet at home pureed Skin Integrity/Comment: anayeli score 17, intact Current %PO Negligible < 25% Estimated Nutritional Goals BEE in Kcals: Using Current wt Calories/Kcals/Kg 30+kcals/kg Kcals Calculated 1920+kcals/day Protein: Using Current wt Protein g/k.2+g/kg Protein Calculated 77+g/day Fluid: ml ~1920ml/day (~1ml/kcal) Nutritional Problem 1. Problem Problem Poor PO intake related to Etiology decreased appetite Signs/Symptoms: as evidenced by PO 0%. Intervention/Recommendation Comments Recommend continuing regular diet with texture per PHYSICAL DESIGN ENGINEER. Consider appeitite stimulant to help with PO intake Recommend Boost Plus BID to help meet estimated needs. Expected Outcomes/Goals Expected Outcomes/Goals PO intake >75% of meals
--- NOTE | 2018-07-31 16:40 | General Progress Note ---
Subjective - Review of Systems Events since last encounter: refusing care in no distress Objective - Results Result Diagrams: 07/12/18 16:26 07/12/18 16:26 Recent Labs: Laboratory Last Values WBC 10.7 Th/cmm (4.8-10.8) 07/12/18 16:26 RBC 4.77 Mil/cmm (4.30-5.70) 07/12/18 16:26 Hgb 13.8 gm/dL (12-16) 07/12/18 16:26 Hct 41.9 % (41.0-60) 07/12/18 16:26 MCV 87.9 fl (80-99) 07/12/18 16:26 MCH 28.9 pg (26.0-30.0) 07/12/18 16: MCHC Differential 32.9 pg (28.0-36.0) 07/12/18 16:26 RDW 14.4 % (11.5-20.0) 07/12/18 16:26 Plt Count 245 Th/cmm (150-400) 07/12/18 16:26 MPV 8.8 fl 07/12/18 16:26 Neutrophils % 63.0 % (40.0-80.0) 07/12/18 16:26 Lymphocytes % 15.4 % (20.0-50.0) L 07/12/18 16:26 Monocytes % 4.8 % (2.0-10.0) 07/12/18 16:26 Eosinophils % 16.8 % (0.0-5.0) H 07/12/18 16:26 Basophils % 0.0 % (0.0-2.0) 07/12/18 16:26 Neutrophils (Manual) Not Reportable 07/12/18 16:26 Lymphocytes 0 % (20-50) L 07/12/18 16:26 Sodium 140 mEq/L (136-145) 07/12/18 16:26 Potassium 3.5 mEq/L (3.5-5.1) 07/12/18 16:26 Chloride 107 mEq/L (98-107) 07/12/18 16:26 Carbon Dioxide 24.3 mEq/L (21.0-31.0) 07/12/18 16:26 Anion Gap 12.2 (7.0-16.0) 07/12/18 16:26 BUN 10 mg/dL (7-25) 07/12/18 16:26 Creatinine 0.9 mg/dL (0.7-1.3) 07/12/18 16:26 Est GFR ( Amer) > 60.0 ml/min (>90) 07/12/18 16:26 Est GFR (Non-Af Amer) > 60.0 ml/min 07/12/18 16:26 BUN/Creatinine Ratio 11.1 07/12/18 16:26 Glucose 105 mg/dL (70-105) 07/12/18 16:26 Calcium 9.9 mg/dL (8.6-10.3) 07/12/18 16:26 Phosphorus 2.4 mg/dL (2.5-5.0) L 07/12/18 16:26 Magnesium 2.3 mg/dL (1.9-2.7) 07/12/18 16:26 Total Bilirubin 1.0 mg/dL (0.3-1.0) 07/12/18 16:26 AST 24 U/L (13-39) 07/12/18 16:26 ALT 12 U/L (7-52) 07/12/18 16:26 Alkaline Phosphatase 88 U/L (34-104) 07/12/18 16:26 Total Protein 7.2 gm/dL (6.0-8.3) 07/12/18 16:26 Albumin 4.1 gm/dL (4.2-5.5) L 07/12/18 16:26 Globulin 3.1 gm/dL 07/12/18 16:26 Albumin/Globulin Ratio 1.3 (1.0-1.8) 07/12/18 16:26 - Physical Exam Vitals and I&O: Vital Signs Temp 97.4 F 07/30/18 07:52 Pulse 69 07/30/18 07:52 Resp 15 07/30/18 08:57 BP 131/71 07/30/18 08:50 Pulse Ox 96 07/30/18 07:52 Intake & Output 07/30/18 07/31/18 07/31/18 18:59 06:59 18:59 Intake Total 360 Balance 360 Weight (lbs) 66.678 kg Intake: Oral 360 Other: # Voids 3 Weight Source Bedscale Active Medications: Current Medications Hydrocortisone (Hydrocortisone 1%) 1 appl TP BID [facility] Stop: 09/12/18 19:29 Last Admin: 07/31/18 16:37 Dose: Not Given Dextrose/Sodium Chloride (D5-0.45ns) 1,000 mls @ 75 mls/hr IV .[id number] [facility] Stop: 09/10/18 23:53 Last Admin: 07/15/18 05:22 Dose: Not Given Losartan Potassium (Cozaar) 25 mg PO DAILY [facility] Stop: 09/11/18 09:59 Last Admin: 07/31/18 09:29 Dose: Not Given Risperidone (Risperdal) 0.5 mg PO BID [facility]; Protocol Stop: 09/14/18 16:59 Last Admin: 07/31/18 16:38 Dose: Not Given General: Alert, No acute distress HEENT: Atraumatic Neck: Supple, JVD Cardiovascular: Regular rate, Normal S1, Normal S2 Lungs: Clear to auscultation Abdomen: Bowel sounds, Soft Assessment/Plan - Problem List Patient Problems: All Active Problems Dehydration (Acute) E86.0 Failure to thrive (Acute) [id number] H/O: CVA (cerebrovascular accident) (Acute) Z86.73 Mood disorder (Acute) F39 - Plan Plan: as per order sheet Nutritional Asmnt/Malnutr-PDOC - Dietary Evaluation Malnutrition Findings (Please click <Entered> for more info): Nutritional Asmnt/Malnutrition Start: 07/13/18 12: 45 Text: Status: Complete Freq: Protocol: Document 07/13/18 12:46 FRANK (Rec: 07/13/18 12:53 FRANK HOGAN- FNS1) Nutritional Asmnt/Malnutrition Patient General Information Diagnosis F T T, dehydration Pertinent Medical Hx/Surgical Hx CVA/TIA Subjective Information Pt sitting up in bed, shook head "no" when asked if he had an appetite, then shrugged his sholders when asked why did he not have an appetite. Current Diet Order/ Nutrition Support pureed Pertinent Medications D5 1/2NS @75ml/hr (1.8L/day, 306kcals/day) Pertinent Labs 07/12: Na 140, K 3.5, Cl 107, CO2 24.3, BUN 10, Ca 0.9, Ca 9 .9, glucose 105, Phos 2.4, Mg 2.3 Nutritional Hx/Data Height 1.88 m Height (Calculated Centimeters) 188.0 Current Weight (lbs) 63.503 kg Weight (Calculated Kilograms) 63.5 Weight (Calculated Grams) 27465.9 Body Mass Index (BMI) 17.9 Weight Status Underweight GI Symptoms GI Symptoms None Last BM 07/13 Cultural/Ethnic/Methodist Belief unknown Usual diet at home pureed Skin Integrity/Comment: anayeli score 17, intact Current %PO Negligible < 25% Estimated Nutritional Goals BEE in Kcals: Using Current wt Calories/Kcals/Kg 30+kcals/kg Kcals Calculated 1920+kcals/day Protein: Using Current wt Protein g/k.2+g/kg Protein Calculated 77+g/day Fluid: ml ~1920ml/day (~1ml/kcal) Nutritional Problem 1. Problem Problem Poor PO intake related to Etiology decreased appetite Signs/Symptoms: as evidenced by PO 0%. Intervention/Recommendation Comments Recommend continuing regular diet with texture per ACADEMIC ADVISEMENT DIRECTOR. Consider appeitite stimulant to help with PO intake Recommend Boost Plus BID to help meet estimated needs. Expected Outcomes/Goals Expected Outcomes/Goals PO intake >75% of meals
--- NOTE | 2018-08-01 10:28 | General Progress Note ---
Subjective - Review of Systems Events since last encounter: Patient awake alert denies pain irritable Objective - Results Result Diagrams: 07/12/18 16:26 07/12/18 16:26 Recent Labs: Laboratory Last Values WBC 10.7 Th/cmm (4.8-10.8) 07/12/18 16:26 RBC 4.77 Mil/cmm (4.30-5.70) 07/12/18 16:26 Hgb 13.8 gm/dL (12-16) 07/12/18 16:26 Hct 41.9 % (41.0-60) 07/12/18 16:26 MCV 87.9 fl (80-99) 07/12/18 16:26 MCH 28.9 pg (26.0-30.0) 07/12/18 16: MCHC Differential 32.9 pg (28.0-36.0) 07/12/18 16:26 RDW 14.4 % (11.5-20.0) 07/12/18 16:26 Plt Count 245 Th/cmm (150-400) 07/12/18 16:26 MPV 8.8 fl 07/12/18 16:26 Neutrophils % 63.0 % (40.0-80.0) 07/12/18 16:26 Lymphocytes % 15.4 % (20.0-50.0) L 07/12/18 16:26 Monocytes % 4.8 % (2.0-10.0) 07/12/18 16:26 Eosinophils % 16.8 % (0.0-5.0) H 07/12/18 16:26 Basophils % 0.0 % (0.0-2.0) 07/12/18 16:26 Neutrophils (Manual) Not Reportable 07/12/18 16:26 Lymphocytes 0 % (20-50) L 07/12/18 16:26 Sodium 140 mEq/L (136-145) 07/12/18 16:26 Potassium 3.5 mEq/L (3.5-5.1) 07/12/18 16:26 Chloride 107 mEq/L (98-107) 07/12/18 16:26 Carbon Dioxide 24.3 mEq/L (21.0-31.0) 07/12/18 16:26 Anion Gap 12.2 (7.0-16.0) 07/12/18 16:26 BUN 10 mg/dL (7-25) 07/12/18 16:26 Creatinine 0.9 mg/dL (0.7-1.3) 07/12/18 16:26 Est GFR ( Amer) > 60.0 ml/min (>90) 07/12/18 16:26 Est GFR (Non-Af Amer) > 60.0 ml/min 07/12/18 16:26 BUN/Creatinine Ratio 11.1 07/12/18 16:26 Glucose 105 mg/dL (70-105) 07/12/18 16:26 Calcium 9.9 mg/dL (8.6-10.3) 07/12/18 16:26 Phosphorus 2.4 mg/dL (2.5-5.0) L 07/12/18 16:26 Magnesium 2.3 mg/dL (1.9-2.7) 07/12/18 16:26 Total Bilirubin 1.0 mg/dL (0.3-1.0) 07/12/18 16:26 AST 24 U/L (13-39) 07/12/18 16:26 ALT 12 U/L (7-52) 07/12/18 16:26 Alkaline Phosphatase 88 U/L (34-104) 07/12/18 16:26 Total Protein 7.2 gm/dL (6.0-8.3) 07/12/18 16:26 Albumin 4.1 gm/dL (4.2-5.5) L 07/12/18 16:26 Globulin 3.1 gm/dL 07/12/18 16:26 Albumin/Globulin Ratio 1.3 (1.0-1.8) 07/12/18 16:26 - Physical Exam Vitals and I&O: Vital Signs Temp 97.4 F 07/30/18 07:52 Pulse 69 07/30/18 07:52 Resp 15 07/30/18 08:57 BP 131/71 07/30/18 08:50 Pulse Ox 96 07/30/18 07:52 Intake & Output 07/31/18 08/01/18 08/01/18 18:59 06:59 18:59 Intake Total 1200 1100 Balance 1200 1100 Weight (lbs) 66.905 kg 67.857 kg Intake: Oral 1200 1100 Other: # Voids 3 3 # Bowel Movements 1 0 Weight Source Bedscale Bedscale Active Medications: Current Medications Hydrocortisone (Hydrocortisone 1%) 1 appl TP BID [facility] Stop: 09/12/18 19:29 Last Admin: 07/31/18 16:37 Dose: Not Given Dextrose/Sodium Chloride (D5-0.45ns) 1,000 mls @ 75 mls/hr IV .[id number] [facility] Stop: 09/10/18 23:53 Last Admin: 07/15/18 05:22 Dose: Not Given Losartan Potassium (Cozaar) 25 mg PO DAILY [facility] Stop: 09/11/18 09:59 Last Admin: 07/31/18 09:29 Dose: Not Given Risperidone (Risperdal) 0.5 mg PO BID [facility]; Protocol Stop: 09/14/18 16:59 Last Admin: 07/31/18 16:38 Dose: Not Given General: Alert, No acute distress HEENT: Atraumatic Neck: Supple, JVD Cardiovascular: Regular rate, Normal S1, Normal S2 Lungs: Clear to auscultation Abdomen: Bowel sounds, Soft Assessment/Plan - Problem List Patient Problems: All Active Problems Dehydration (Acute) E86.0 Failure to thrive (Acute) [id number] H/O: CVA (cerebrovascular accident) (Acute) Z86.73 Mood disorder (Acute) F39 - Plan Plan: as per order sheet Nutritional Asmnt/Malnutr-PDOC - Dietary Evaluation Malnutrition Findings (Please click <Entered> for more info): Nutritional Asmnt/Malnutrition Start: 07/13/18 12: 45 Text: Status: Complete Freq: Protocol: Document 07/13/18 12:46 FRANK (Rec: 07/13/18 12:53 FRANK HOGAN- FNS1) Nutritional Asmnt/Malnutrition Patient General Information Diagnosis F T T, dehydration Pertinent Medical Hx/Surgical Hx CVA/TIA Subjective Information Pt sitting up in bed, shook head "no" when asked if he had an appetite, then shrugged his sholders when asked why did he not have an appetite. Current Diet Order/ Nutrition Support pureed Pertinent Medications D5 1/2NS @75ml/hr (1.8L/day, 306kcals/day) Pertinent Labs 07/12: Na 140, K 3.5, Cl 107, CO2 24.3, BUN 10, Ca 0.9, Ca 9 .9, glucose 105, Phos 2.4, Mg 2.3 Nutritional Hx/Data Height 1.88 m Height (Calculated Centimeters) 188.0 Current Weight (lbs) 63.503 kg Weight (Calculated Kilograms) 63.5 Weight (Calculated Grams) 86069.9 Body Mass Index (BMI) 17.9 Weight Status Underweight GI Symptoms GI Symptoms None Last BM 07/13 Cultural/Ethnic/Hoahaoism Belief unknown Usual diet at home pureed Skin Integrity/Comment: anayeli score 17, intact Current %PO Negligible < 25% Estimated Nutritional Goals BEE in Kcals: Using Current wt Calories/Kcals/Kg 30+kcals/kg Kcals Calculated 1920+kcals/day Protein: Using Current wt Protein g/k.2+g/kg Protein Calculated 77+g/day Fluid: ml ~1920ml/day (~1ml/kcal) Nutritional Problem 1. Problem Problem Poor PO intake related to Etiology decreased appetite Signs/Symptoms: as evidenced by PO 0%. Intervention/Recommendation Comments Recommend continuing regular diet with texture per FORENSIC PSYCHIATRIST. Consider appeitite stimulant to help with PO intake Recommend Boost Plus BID to help meet estimated needs. Expected Outcomes/Goals Expected Outcomes/Goals PO intake >75% of meals
[2018-08-01] MEDS ORDERED: D5-0.45NS 1,000 ML IV SCH (11:30)
--- NOTE | 2018-08-01 16:35 | Consultation ---
DATE OF CONSULTATION: 08/01/2018 HISTORY OF PRESENT ILLNESS: The patient currently still in the hospital pending placement. History of cerebrovascular accident. Symptoms seem consistent. The patient refusing to speak with me, very blank stare, flat affect, lying in bed, no behaviors, no agitation, no violence or aggressive behaviors, refusing to speak with me, selectively mute, mostly mute, refusing medications and treatment. He has bath remain on his own volition and eating on his own volition. MEDICATIONS: Noted. MENTAL STATUS EXAMINATION: -Gambian male, staring blankly, not talking to me at all, unclear orientation, unclear psychotic symptoms. No suicidal or homicidal gestures. PROVISIONAL DIAGNOSES: History of cerebrovascular accident. Unclear history of mental illness. RECOMMENDATIONS AND PLAN: Currently, the patient is pending. [facility]# [id number]
--- NOTE | 2018-08-02 12:40 | Internal Medicine Prog Note ---
Internal Medicine Subjective - Subjective Service Date: 08/02/18 Patient is:: awake Per staff patient has:: tolerating meds, refusing care Internal Medicine Objective - Results Result Diagrams: 07/12/18 16:26 07/12/18 16:26 Recent Labs: Laboratory Last Values WBC 10.7 Th/cmm (4.8-10.8) 07/12/18 16:26 RBC 4.77 Mil/cmm (4.30-5.70) 07/12/18 16:26 Hgb 13.8 gm/dL (12-16) 07/12/18 16:26 Hct 41.9 % (41.0-60) 07/12/18 16:26 MCV 87.9 fl (80-99) 07/12/18 16:26 MCH 28.9 pg (26.0-30.0) 07/12/18 16: MCHC Differential 32.9 pg (28.0-36.0) 07/12/18 16:26 RDW 14.4 % (11.5-20.0) 07/12/18 16:26 Plt Count 245 Th/cmm (150-400) 07/12/18 16:26 MPV 8.8 fl 07/12/18 16:26 Neutrophils % 63.0 % (40.0-80.0) 07/12/18 16:26 Lymphocytes % 15.4 % (20.0-50.0) L 07/12/18 16:26 Monocytes % 4.8 % (2.0-10.0) 07/12/18 16:26 Eosinophils % 16.8 % (0.0-5.0) H 07/12/18 16:26 Basophils % 0.0 % (0.0-2.0) 07/12/18 16:26 Neutrophils (Manual) Not Reportable 07/12/18 16:26 Lymphocytes 0 % (20-50) L 07/12/18 16:26 Sodium 140 mEq/L (136-145) 07/12/18 16:26 Potassium 3.5 mEq/L (3.5-5.1) 07/12/18 16:26 Chloride 107 mEq/L (98-107) 07/12/18 16:26 Carbon Dioxide 24.3 mEq/L (21.0-31.0) 07/12/18 16:26 Anion Gap 12.2 (7.0-16.0) 07/12/18 16:26 BUN 10 mg/dL (7-25) 07/12/18 16:26 Creatinine 0.9 mg/dL (0.7-1.3) 07/12/18 16:26 Est GFR ( Amer) > 60.0 ml/min (>90) 07/12/18 16:26 Est GFR (Non-Af Amer) > 60.0 ml/min 07/12/18 16:26 BUN/Creatinine Ratio 11.1 07/12/18 16:26 Glucose 105 mg/dL (70-105) 07/12/18 16:26 Calcium 9.9 mg/dL (8.6-10.3) 07/12/18 16:26 Phosphorus 2.4 mg/dL (2.5-5.0) L 07/12/18 16:26 Magnesium 2.3 mg/dL (1.9-2.7) 07/12/18 16:26 Total Bilirubin 1.0 mg/dL (0.3-1.0) 07/12/18 16:26 AST 24 U/L (13-39) 07/12/18 16:26 ALT 12 U/L (7-52) 07/12/18 16:26 Alkaline Phosphatase 88 U/L (34-104) 07/12/18 16:26 Total Protein 7.2 gm/dL (6.0-8.3) 07/12/18 16:26 Albumin 4.1 gm/dL (4.2-5.5) L 07/12/18 16:26 Globulin 3.1 gm/dL 07/12/18 16:26 Albumin/Globulin Ratio 1.3 (1.0-1.8) 07/12/18 16:26 - Physical Exam Vitals and I&O: Vital Signs Temp 97.4 F 07/30/18 07:52 Pulse 69 07/30/18 07:52 Resp 16 08/02/18 10:45 BP 131/71 07/30/18 08:50 Pulse Ox 96 07/30/18 07:52 Intake & Output 08/01/18 08/02/18 08/02/18 18:59 06:59 18:59 Intake Total 1450 Balance 1450 Weight (lbs) 149 lb 150 lb Intake: Oral 1450 Other: # Voids 6 3 Weight Source Bedscale Bedscale Active Medications: Current Medications Hydrocortisone (Hydrocortisone 1%) 1 appl TP BID [facility] Stop: 09/30/18 16:59 Last Admin: 08/02/18 09:38 Dose: Not Given Dextrose/Sodium Chloride (D5-0.45ns) 1,000 mls @ 75 mls/hr IV .[id number] FER Stop: 09/30/18 11:29 Last Admin: 08/01/18 12:52 Dose: Not Given Losartan Potassium (Cozaar) 25 mg PO DAILY FER Stop: 09/30/18 11:29 Last Admin: 08/02/18 09:38 Dose: Not Given Risperidone (Risperdal) 0.5 mg PO BID [facility]; Protocol Stop: 09/30/18 11:29 Last Admin: 08/02/18 09:38 Dose: Not Given General: weak, alert HEENT: NC/AT, PERRLA Neck: Supple Lungs: CTAB Cardiovascular: RRR, Normal S1, Normal S2 Extremities: excoriation, rash Neurological: alert Internal Medicine Assmt/Plan - Assessment Assessment: Dehydration (Acute) E86.0 Failure to thrive (Acute) [id number] H/O: CVA (cerebrovascular accident) (Acute) Z86.73 - Plan Plan: psych follow up continue current plan of care Nutritional Asmnt/Malnutr-PDOC - Dietary Evaluation Malnutrition Findings (Please click <Entered> for more info): Nutritional Asmnt/Malnutrition Start: 07/13/18 12: 45 Text: Status: Complete Freq: Protocol: Document 07/13/18 12:46 FRANK (Rec: 07/13/18 12:53 FRANK HOGAN- [email or web address]) Nutritional Asmnt/Malnutrition Patient General Information Diagnosis F T T, dehydration Pertinent Medical Hx/Surgical Hx CVA/TIA Subjective Information Pt sitting up in bed, shook head "no" when asked if he had an appetite, then shrugged his sholders when asked why did he not have an appetite. Current Diet Order/ Nutrition Support pureed Pertinent Medications D5 1/2NS @75ml/hr (1.8L/day, 306kcals/day) Pertinent Labs 07/12: Na 140, K 3.5, Cl 107, CO2 24.3, BUN 10, Ca 0.9, Ca 9 .9, glucose 105, Phos 2.4, Mg 2.3 Nutritional Hx/Data Height 6 ft 2 in Height (Calculated Centimeters) 188.0 Current Weight (lbs) 140 lb Weight (Calculated Kilograms) 63.5 Weight (Calculated Grams) 83429.9 Body Mass Index (BMI) 17.9 Weight Status Underweight GI Symptoms GI Symptoms None Last BM 07/13 Cultural/Ethnic/Mosque Belief unknown Usual diet at home pureed Skin Integrity/Comment: anayeli score 17, intact Current %PO Negligible < 25% Estimated Nutritional Goals BEE in Kcals: Using Current wt Calories/Kcals/Kg 30+kcals/kg Kcals Calculated 1920+kcals/day Protein: Using Current wt Protein g/k.2+g/kg Protein Calculated 77+g/day Fluid: ml ~1920ml/day (~1ml/kcal) Nutritional Problem 1. Problem Problem Poor PO intake related to Etiology decreased appetite Signs/Symptoms: as evidenced by PO 0%. 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 Consider appeitite stimulant to help with PO intake Recommend Boost Plus BID to help meet estimated needs. Expected Outcomes/Goals Expected Outcomes/Goals PO intake >75% of meals
== END 2018-08-02 21:35 | DRG 422 ==
LOC: ER 15:29 → MSI 21:30
PROVIDERS: ADMIT Internal Medicine; ATTEND Internal Medicine
DX: E86.0 Dehydration (principal); F20.9 Schizophrenia, unspecified; F29 Unspecified psychosis not due to a substance or known physiological condition; F39 Unspecified mood [affective] disorder; R62.7 Adult failure to thrive; F41.9 Anxiety disorder, unspecified; Z59.0 Homelessness; Z86.73 Personal history of transient ischemic attack (TIA), and cerebral infarction without residual deficits
CPT/HCPCS: 36415-UA; 80053-TC; 83735-TC; 84100-TC; 85007-TC; 85025-TC